=== PATIENT | female | born 1990 | race Caucasian/White ===

== ENCOUNTER → 2018-04-26 13:47 | Outpatient (CLI) | payer BC, SELFPAY ==
[2018-04-26 14:07] LABS: Basophils % 0.6 % (0.1-2.0); Eosinophils # 0.2 K/mm3 (0.0-0.4); Eosinophils % 3.4 % (0.1-12.0); Hematocrit 44.4 % (37.0-47.0); Hemoglobin 14.5 g/dL (12.2-16.2); Lymphocytes # 2.4 K/mm3 (0.7-4.5); Lymphocytes % 34.6 % (10-50); Mean Corpuscular HGB Conc 32.6 g/dL (31.8-35.4); Mean Corpuscular Hemoglobin 29.2 pg (27.0-31.2); Mean Corpuscular Volume 89.6 fl (81-99); Mean Platelet Volume 8.9 fl (7.4-10.4); Monocytes # 0.4 K/mm3 (0.1-1.0); Monocytes % 5.5 % (1.7-9.3); Neutrophils # 3.8 K/mm3 (1.8-7.8); Neutrophils % 55.9 % (37.0-80.0); Platelet Count 300 K/mm3 (142-424); Red Blood Count 4.96 M/mm3 (4.20-5.40); Red Cell Distribution Width 12.6 % (11.5-17.5); White Blood Count 6.8 K/mm3 (4.8-10.8)
[2018-04-26 14:20] LABS: Alanine Aminotransferase 66 U/L (12-78); Albumin Level 3.8 gm/dL (3.4-5.0); Albumin/Globulin Ratio 1.1 (1.1-1.8); Alkaline Phosphatase 81 U/L (46-116); Anion Gap 13.5 mEq/L (5-15); Aspartate Amino Transferase 28 U/L (15-37); Bilirubin,Total 0.5 mg/dL (0.2-1.0); Blood Urea Nitrogen 16 mg/dL (7-18); Carbon Dioxide 26 mmol/L (21.0-32.0); Chloride 104 mmol/L (98-107); Chol/HDL Ratio 3.7 (1-3.5); Cholesterol 187 mg/dL (140-200); Creatinine,Serum 0.63 mg/dL (0.55-1.02); Estimated Glomerular Filt Rate 113 ml/min (>60); GFR (African American) 137 ML/MIN (>60); Globulin 3.5 gm/dl (1.3-3.2); Glucose 94 mg/dL (74-106); HDL Cholesterol 50 mg/dL (29-89); LDL Cholesterol 128 mg/dL (0-130); Potassium 4.5 mmoL/L (3.5-5.1); Sodium 139 mmol/L (136-145); T4 (Thyroxine) 8.3 ug/dl (4.7-13.3); Thyroid Stimulating Hormone 2.22 uIU/ml (0.358-3.740); Total Protein,Serum 7.3 gm/dL (6.4-8.2); Triglycerides 46 mg/dL (30-200); VLDL Cholesterol 9 mg/dL (0-40)
[2018-04-26 14:33] LABS: C-Reactive Protein < 0.2 mg/L (0.0-0.9)
[2018-04-26 15:38] LABS: Erythrocyte Sedimentation Rate 20 mm/hr (0-20)
== END ==
PROVIDERS: Visit Provider Physician Assistant
DX: H53.8 Other visual disturbances (principal); H53.123 Transient visual loss, bilateral; R42 Dizziness and giddiness; R53.83 Other fatigue; F32.9 Major depressive disorder, single episode, unspecified
CPT/HCPCS: 80053; 80061; 82652; 84436; 84443; 85025; 85651; 86140

== ENCOUNTER → 2018-05-11 14:05 | Outpatient (CLI) | payer BC, SELFPAY ==
--- NOTE | 2018-05-11 14:13 | CT_ITS ---
CT head/brain wo con HISTORY: Transient visual loss, optic nerve swelling ITS.REASON: Transient visual loss ORDERING PHYSICIAN: SHILOH Zuñiga PATIENT AGE: 27 years COMPARISON: None TECHNIQUE: Axial images obtained without contrast. Brain and bone windows reviewed. All CT scans at the facility use one or more dose reduction, viz: automated exposure control, ma/kV adjustment per patient size (including targeted exams where dose is matched to indication, i.e. head), or iterative reconstruction technique. FINDINGS: No midline shift, mass effect, intracranial hemorrhage, hydrocephalus, or extra-axial fluid collection is evident. The calvarium has an unremarkable appearance. No mastoid effusion. No sinus air-fluid levels.. There is mild mucosal thickening of the ethmoid sinuses IMPRESSION: Negative CT head without contrast. No acute finding
--- NOTE | 2018-05-11 14:25 | CI_ITS ---
Cerebrovascular Exam Indications: Transient vision loss 368.12. Patient notes she has suffered from migraines for several years and recently had transient vision loss with migraine. IMPRESSIONS 1. The bilateral internal carotid arteries reveal no evidence of plaque or stenosis. 2. The bilateral common and external carotid arteries reveal no significant stenosis. Carotid duplex study. Complete study and Doppler flow study including spectral analysis, color and valdez scale imaging. Height: Height: 165.1cm. Height: 65in. Weight: Weight: 77.1kg. Weight: 169.6lb. Body mass index: BMI: 28.3kg/m^2. Body surface area: BSA: 1.9m^2. Location: Vascular laboratory. Patient status: Outpatient. Tables: Arterial flow: + +--------+--------+ Location V sys V ed + +--------+--------+ Right CCA - proximal 125cm/s 28.3cm/s + +--------+--------+ Right CCA - distal 102cm/s 35.4cm/s + +--------+--------+ Right ECA 108cm/s -------- + +--------+--------+ Right ICA - proximal 93.5cm/s 40.1cm/s + +--------+--------+ Right ICA - mid 106cm/s 47.9cm/s + +--------+--------+ Right ICA - distal 125cm/s 57.4cm/s + +--------+--------+ Right vertebral 73.1cm/s -------- + +--------+--------+ Left CCA - proximal 134cm/s 34.6cm/s + +--------+--------+ Left CCA - distal 109cm/s 36.1cm/s + +--------+--------+ Left ECA 117cm/s -------- + +--------+--------+ Left ICA - proximal 89.6cm/s 34.6cm/s + +--------+--------+ Left ICA - mid 118cm/s 49.5cm/s + +--------+--------+ Left ICA - distal 120cm/s 51.9cm/s + +--------+--------+ Left vertebral 77cm/s -------- + +--------+--------+ Velocity ratios: + + + + + + Right, V sys Right, V ed Left, V sys Left, V ed + + + + + + Max ICA/dist CCA 1.23 1.62 1.1 1.44 + + + + + + (Report amended ) Electronically signed by: Luc Khanna [id number]
== END ==
PROVIDERS: PCP Physician Assistant; Visit Provider Physician Assistant
DX: H53.8 Other visual disturbances (principal)
CPT/HCPCS: 70450; 93880

== ENCOUNTER → 2019-08-14 09:52 | Outpatient (CLI) | payer BC, SELFPAY ==
[2019-08-14 11:32] LABS: HCG,Quantitative 314 mIU/ml (0-5.42)
== END ==
PROVIDERS: Visit Provider Obstetrics & Gynecology
DX: Z34.90 Encounter for supervision of normal pregnancy, unspecified, unspecified trimester (principal)
CPT/HCPCS: 36415; 84702

== ENCOUNTER → 2019-08-16 09:01 | Outpatient (CLI) | payer BC, SELFPAY ==
[2019-08-16 10:13] LABS: HCG,Quantitative 829 mIU/ml (0-5.42)
== END ==
PROVIDERS: Visit Provider Obstetrics & Gynecology
DX: Z32.00 Encounter for pregnancy test, result unknown (principal)
CPT/HCPCS: 36415; 84702

== ENCOUNTER → 2019-08-20 09:21 | Outpatient (CLI) | payer BC, SELFPAY ==
[2019-08-20 11:33] LABS: HCG,Quantitative 4360 mIU/ml (0-5.42)
== END ==
PROVIDERS: Visit Provider Obstetrics & Gynecology
DX: Z34.90 Encounter for supervision of normal pregnancy, unspecified, unspecified trimester (principal)
CPT/HCPCS: 36415; 84702

== ENCOUNTER → 2019-08-21 12:20 | Outpatient (CLI) | payer BC, SELFPAY ==
[2019-08-21 12:56] LABS: Basophils % 0.4 % (0.1-2.0); Eosinophils # 0.6 K/mm3 (0.0-0.4); Eosinophils % 5.6 % (0.1-12.0); Hematocrit 40.7 % (37.0-47.0); Hemoglobin 13.9 g/dL (12.2-16.2); Lymphocytes # 2.4 K/mm3 (0.7-4.5); Lymphocytes % 22.9 % (10-50); Mean Corpuscular HGB Conc 34.3 g/dL (31.8-35.4); Mean Corpuscular Hemoglobin 29.8 pg (27.0-31.2); Mean Platelet Volume 7.8 fl (7.4-10.4); Monocytes # 0.3 K/mm3 (0.1-1.0); Monocytes % 3.2 % (1.7-9.3); Neutrophils # 7.2 K/mm3 (1.8-7.8); Neutrophils % 68.1 % (37.0-80.0); Platelet Count 376 K/mm3 (142-424); Red Blood Count 4.68 M/mm3 (4.20-5.40); Red Cell Distribution Width 12.8 % (11.5-17.5); White Blood Count 10.5 K/mm3 (4.8-10.8)
[2019-08-21 13:53] LABS: Phencyclidine Screen,Urine Negative ng/ml (<25)
[2019-08-21 14:01] LABS: Amphetamine/Metha Screen,Urine Negative ng/ml (<1000)
[2019-08-21 14:02] LABS: Barbiturates Screen,Urine Negative ng/ml (<200)
[2019-08-21 14:03] LABS: Benzodiazepines Screen,Urine Negative ng/ml (<200); Cannabinoid Screen,Urine Negative ng/ml (<50)
[2019-08-21 14:04] LABS: Opiate Screen,Urine Negative ng/ml (<300)
[2019-08-21 14:05] LABS: Cocaine Screen,Urine Negative ng/ml (<300); Methadone Screen,Urine Negative ng/ml (<300)
[2019-08-22 11:57] LABS: HIV Screen 4th Generation wRfx Non Reactive (Non Reactive); Hepatitis B Surface Antigen Negative (Negative); Hepatitis C Antibody 0.1 s/co ratio (0.0-0.9); Rapid Plasma Reagin Ab Titer Non Reactive (NonRea<1:1); Rubella Antibodies, IgG 1.04 index (Immune >0.99)
== END ==
PROVIDERS: Visit Provider Obstetrics & Gynecology
DX: Z34.90 Encounter for supervision of normal pregnancy, unspecified, unspecified trimester (principal)
CPT/HCPCS: 36415; 80305; 85025; 86592; 86703; 86762; 86850; 87340; 87380; G0432

== ENCOUNTER → 2019-08-23 10:09 | Outpatient (CLI) | payer BC, SELFPAY ==
[2019-08-23 11:30] LABS: HCG,Quantitative 9326 mIU/ml (0-5.42)
== END ==
PROVIDERS: Visit Provider Obstetrics & Gynecology
DX: Z34.90 Encounter for supervision of normal pregnancy, unspecified, unspecified trimester (principal)
CPT/HCPCS: 36415; 84702

== ENCOUNTER → 2019-08-27 13:20 | Outpatient (CLI) | payer BC, SELFPAY ==
--- NOTE | 2019-08-27 13:23 | US_ITS ---
PROCEDURE: US OB TRANSVAGINAL CLINICAL INDICATION: US OB Dates COMPARISON: TVP US TRANSVAGINAL PREG from 12/19/2014 FINDINGS: An intrauterine gestational sac is present with a pole with a crown-rump length of 0.3cm correlating to gestational age of 6weeks. heart tones are present with an FHR of 106bpm. Yolk sac is noted. No adnexal mass. No cul-de-sac fluid IMPRESSION: Live IUP at 6 weeks 0 days Estimated due date by Ultrasound is 04/21/2020 Dictated by: Sohial Aragon MD 08/27/2019 18:45 Electronically signed by Sohail Aragon MD in [place] 08/27/2019 18:45
== END ==
PROVIDERS: PCP Physician Assistant; Visit Provider Obstetrics & Gynecology
DX: O26.841 Uterine size-date discrepancy, first trimester (principal)
CPT/HCPCS: 76817

== ENCOUNTER → 2019-09-04 14:34 | Outpatient (CLI) | payer BC, SELFPAY ==
--- NOTE | 2019-09-04 14:35 | US_ITS ---
PROCEDURE: US OB <= 14 WEEKS FETUS CLINICAL INDICATION: heart rate slow and mother had an ablation Evaluate viability/early age COMPARISON: US OB TRANSVAGINAL from 08/27/2019 FINDINGS: An intrauterine gestational sac is present with a pole with a crown-rump length of 0.97cm correlating to gestational age of 7weeks 1day. heart tones are present with an FHR of 136bpm. Yolk sac is noted. Unremarkable adnexa IMPRESSION: Live IUP at 7 weeks 1 day Estimated due date by Ultrasound is 04/21/2020 Dictated by: Sohail Aragon MD 09/04/2019 16:55 Electronically signed by Sohail Aragon MD in [facility] 09/04/2019 16:55
== END ==
PROVIDERS: PCP Physician Assistant; Visit Provider Obstetrics & Gynecology
DX: R00.1 Bradycardia, unspecified (principal); Z98.890 Other specified postprocedural states
CPT/HCPCS: 76801

== ENCOUNTER 2020-01-16 18:33 | Outpatient (CLI) | payer BC, SELFPAY ==
[2020-01-16 19:07] VITALS: BP 129/89; PULSE 111; RESP 20; TEMP 36.9; O2SAT 97; BMI 30.7
[2020-01-16 19:42] VITALS: BMI 30.7
[2020-01-16 20:14] LABS: Microscopic, Urine URINE MICROSCOPIC (MICROSCOPIC)
[2020-01-16 20:22] LABS: Appearance,Urine CLEAR (Clear); Bilirubin,Urine Negative (Negative); Blood, Urine Negative (Negative); Color,Urine YELLOW (Yellow); Glucose,Urine (UA) Negative (Negative); Ketones,Urine Negative (Negative); Leukocyte Esterase,Urine TRACE (Negative); Nitrate,Urine Negative (Negative); Protein,Urine Negative (Negative); Urobilinogen,Urine 0.2 EU/dl (0.2)
[2020-01-16 20:29] LABS: Mucus,Urine 2+ /lpf
[2020-01-16 20:34] LABS: Amphetamine/Metha Screen,Urine Negative ng/ml (<1000)
[2020-01-16 20:35] LABS: Barbiturates Screen,Urine Negative ng/ml (<200); Benzodiazepines Screen,Urine Negative ng/ml (<200)
[2020-01-16 20:36] LABS: Cannabinoid Screen,Urine Negative ng/ml (<50)
[2020-01-16 20:37] LABS: Cocaine Screen,Urine Negative ng/ml (<300); Methadone Screen,Urine Negative ng/ml (<300)
[2020-01-16 20:38] LABS: Opiate Screen,Urine Negative ng/ml (<300); Phencyclidine Screen,Urine Negative ng/ml (<25)
== END 2020-01-16 21:44 | disposition home or self-care (01) ==
LOC: OBOUT 18:36 → OB 18:37
PROVIDERS: PCP Physician Assistant; Visit Provider Nurse Practitioner Obstetrics & Gynecology
DX: O47.02 False labor before 37 completed weeks of gestation, second trimester (principal); Z3A.26 26 weeks gestation of pregnancy
CPT/HCPCS: 59025; 80305; 81001; 96365; 96372; G0463

== ENCOUNTER 2020-02-22 02:49 | Outpatient (CLI) | payer BC, SELFPAY ==
[2020-02-22 03:00] VITALS: BMI 31.4
[2020-02-22 03:27] VITALS: BP 141/98; PULSE 111; RESP 22; TEMP 36.7; O2SAT 98; BMI 31.4
[2020-02-22 03:30] LABS: Fetal Membrane Rupture (Rapid) Positive (Negative)
[2020-02-22 03:32] LABS: Chloride 104 mmol/L (98-107); Potassium 3.8 mmoL/L (3.5-5.1); Sodium 134 mmol/L (136-145)
[2020-02-22 03:35] LABS: Anion Gap 11.8 mEq/L (5-15); Blood Urea Nitrogen 10 mg/dl (7-17); Calcium 9.9 mg/dl (8.4-10.2); Carbon Dioxide 22 mmol/L (22.0-30.0); Creatinine Clearance Estimated 225 mL/min (50-200); Estimated Glomerular Filt Rate 146 ml/min (>60); GFR (African American) 177 ML/MIN (>60); Glucose 121 mg/dl (74-100)
[2020-02-22 03:39] LABS: Basophils % 0.1 % (0.1-2.0); Eosinophils # 0.2 K/mm3 (0.0-0.4); Eosinophils % 1.2 % (0.1-12.0); Hematocrit 39.3 % (37.0-47.0); Mean Corpuscular HGB Conc 33.1 g/dL (31.8-35.4); Mean Corpuscular Volume 84.5 fl (81-99); Mean Platelet Volume 10.3 fl (7.4-10.4); Monocytes # 0.9 K/mm3 (0.1-1.0); Monocytes % 5.1 % (1.7-9.3); Neutrophils # 13.3 K/mm3 (1.8-7.8); Neutrophils % 76.6 % (37.0-80.0); Platelet Count 271 K/mm3 (142-424); Red Blood Count 4.65 M/mm3 (4.20-5.40); Red Cell Distribution Width 13.5 % (11.5-17.5); White Blood Count 17.3 K/mm3 (4.8-10.8)
[2020-02-22 03:42] LABS: MANUAL DIFFERENTIAL MANUAL DIFFERENTIAL (MANUAL DIFF)
--- NOTE | 2020-02-22 03:47 | HMH.OBDCSM ---
General - General Admission date:: 02/22/20 Discharge date: 02/22/20 HPI - History of Present Illness History of present illness: 29 yo [id number] @ 31 05/21 presented with gush of amniotic fluid Grossly ruptured on exam, cervix visually closed complicated by a history an endometrial ablation in 2018 Patient continued to have regular menstrual periods after the ablation but was under the impression that the ablation constituted a form of contraception consult with M Dr. Suh (including all ultrasound exams) has not shown any abnormal placentation and course has been fairly uneventful She was seen in OB triage for contractions at 26 weeks and received a single dose of celestone, but cervix was closed labsdrawn 08/21/19: A+, antibody negative, Hep B sAg negative, Hep C negative, HIV neg, rubella immune Hospital Course Hospital Course: Evaluation in triage showed gross rupture of membranes and transfer to was immediately arranged due to prematurity NST shows basline 150 with normal variability and no decelerations; no contractions on [place] Objective Vital signs: Temp Pulse Resp BP Pulse Ox 98.1 F 111 H 22 141/98 H 98 02/22/20 03:27 02/22/20 03:27 02/22/20 03:27 02/22/20 03:27 02/22/20 03:27 no acute distress - *Routine HEENT Exam Head: Present: normocephalic, atraumatic Eye: Absent: conjunctival icterus ENT: Present: mucous membranes moist - *Routine Neck Exam Present: supple - *Routine Respiratory Exam Present: CTA bilaterally. Absent: respiratory distress - *Routine Cardiovascular Exam Present: RRR - *Routine Abdominal Exam Present: soft. Absent: tenderness, distended - *Routine Exam Comments: pooling of amniotic fluid cervix visually closed - *Routine Extremities Exam Absent: edema - *Routine Skin Exam Absent: rash - *Routine Neurological Exam Present: alert, oriented X3 - Routine Psychiatric Exam Present: normal affect Results Labs on day of discharge: Labs from last 24 hours 02/22/20 02/22/20 02/22/20 03:15 03:15 03:15 WBC 17.3 H RBC 4.65 Hgb 13.0 Hct 39.3 MCV 84.5 MCH 28.0 MCHC 33.1 RDW 13.5 Plt Count 271 MPV 10.3 Neut % (Auto) 76.6 Lymph % (Auto) 17.0 [place] % (Auto) 5.1 Eos % (Auto) 1.2 Baso % (Auto) 0.1 Neut # (Auto) 13.3 H Lymph # (Auto) 3.0 [place] # (Auto) 0.9 Eos # (Auto) 0.2 Baso # (Auto) 0.0 Sodium 134 L Potassium 3.8 Chloride 104 Carbon Dioxide 22 Anion Gap 11.8 BUN 10 Creatinine 0.50 L Estimated Creat Clear 225 Estimated GFR 146 Est GFR ( Amer) 177 Glucose 121 H Calcium 9.9 Membrane Rupture Blood Type Pending Antibody Screen Pending 02/22/20 03:00 WBC RBC Hgb Hct MCV MCH MCHC RDW Plt Count MPV Neut % (Auto) Lymph % (Auto) [place] % (Auto) Eos % (Auto) Baso % (Auto) Neut # (Auto) Lymph # (Auto) [place] # (Auto) Eos # (Auto) Baso # (Auto) Sodium Potassium Chloride Carbon Dioxide Anion Gap BUN Creatinine Estimated Creat Clear Estimated GFR Est GFR ( Amer) Glucose Calcium Membrane Rupture Positive A Blood Type Antibody Screen DS: Diagnosis - Discharge Diagnosis (1) 31 weeks gestation of Status: Acute (2) Premature rupture of membranes Status: Acute (3) History of endometrial ablation Status: Acute Problem details: 08/2018 (4) Anxiety and depression Status: Acute (5) tubal ligation planned Status: Acute Discharge Plan - Patient Discharge Instructions ACTIVITY: Bed rest DIET: continue same diet - Follow up Plan Disposition: Xfer Short-Term Hosp Home Medications: Home Medications Medication Instructions Recorded Confirmed Type prenat.vits,ivan,wem-wome-rcrjv 1 tab PO DAILY 08/30/19 History venlafaxine 150 mg See
[2020-02-22 03:56] LABS: Coronavirus 19 IgG Antibody Negative (Negative); Coronavirus 19 IgM Antibody Negative (Negative)
[2020-02-22 05:34] LABS: Eosinophils % 3 % (0-3); Lymphocytes % 17 % (10-50); Neutrophils % 80 % (42-76); Platelet Estimate Normal; RBC Morphology Normal; Total Cells Counted 100
== END 2020-02-22 04:14 | disposition short-term general hospital (02) ==
LOC: OBOUT 02:50 → OB 02:56
PROVIDERS: PCP Physician Assistant; Visit Provider Obstetrics & Gynecology
DX: O26.893 Other specified pregnancy related conditions, third trimester (principal); Z3A.31 31 weeks gestation of pregnancy
CPT/HCPCS: 59025; 80048; 84112; 85007; 85025; 86328; 86850; 96360; J0290

== ENCOUNTER → 2020-05-21 12:53 | Outpatient (CLI) | payer BC, SELFPAY ==
--- NOTE | 2020-05-21 12:54 | MR_ITS ---
PROCEDURE: MR HEAD/BRAIN WO CON CLINICAL INDICATION: Benign increased intracranial pressure, headache COMPARISON: CT HEADWO CT head/brain wo con from 05/11/2018 TECHNIQUE: Routine multiplanar multi echo sequences are performed without gadolinium enhancement. FINDINGS: No midline shift, mass effect, intracranial hemorrhage, or hydrocephalus is. The cerebellopontine angles, cerebellum, and brainstem have an unremarkable appearance. The pituitary, optic chiasm, corpus callosum, and craniocervical junction have an unremarkable appearance. There is a partial empty sella. The ventricles are somewhat slit like. No restricted diffusion. Small amount fluid is present in the left mastoid sinus. Mucosal thickening is present in the ethmoid sinus bilaterally, right anterior ethmoids, and right frontal sinus with small air-fluid levels in the frontal sinus on the right.. IMPRESSION: 1. The lateral ventricles are somewhat small with a slit like appearance and there is partial empty sella. These findings may be seen with benign intracranial hypertension. Correlation with clinical parameters needed. 2. Ethmoid and right frontal sinus disease with a small amount of fluid in the left mastoid sinus. Dictated by: Sohail Aragon MD 05/21/2020 14:36 Sohail Aragon MD in [place] 05/21/2020 14:37
== END ==
PROVIDERS: PCP Physician Assistant; Visit Provider Specialist
DX: G44.89 Other headache syndrome (principal); G93.2 Benign intracranial hypertension
CPT/HCPCS: 70551

== ENCOUNTER 2020-05-23 10:01 | Day surgery (SDC) | payer BC, SELFPAY ==
[2020-05-23 10:13] VITALS: BP 118/81; PULSE 96; RESP 18; TEMP 36.6; O2SAT 97; BMI 30.2
[2020-05-23 10:40] VITALS: BP 107/69; PULSE 72; RESP 18
[2020-05-23 10:45] VITALS: BP 108/71; PULSE 75; RESP 18; O2SAT 98
--- NOTE | 2020-05-23 10:54 | HMH.PMPROC ---
- Procedure Date: 05/23/20 Time: 10:54 Anesthesiologist:: Heriberto Naylor MD Complications:: None Pre-procedure Diagnosis:: Headaches with pseudotumor cerebri Post-procedure Diagnosis:: Same Indications for Procedure:: Patient is a pleasant 29-year-old white female who we are treating for headaches with pseudotumor cerebri. She is referred by Dr. Duff for diagnostic lumbar puncture under fluoroscopy to obtain opening and closing pressures and CSF to send for indicated studies. Procedure Details:: Lumbar puncture under fluoroscopy Informed consent was obtained the risk and benefits of the procedure were explained to the patient. Patient was taken the procedure room. She was placed in left lateral decubitus position. C-arm fluoroscopy was used to view the lumbar spine. The skin and subcutaneous tissues were anesthetized using lidocaine. A 20-gauge needle was inserted and advanced into the L4-5 interspace until clear CSF was obtained. Opening pressures were taken and found to be 19 cm of water. We withdrew approximately 20 mL of CSF placed into a total of 4 tubes. Closing pressures were found to be 8 cm of water. The needle was withdrawn a Band-Aid was placed the patient was taken recovery in stable condition. Patient tolerated the procedure well with no complications. Plan and Disposition:: We will follow-up with her on a as needed basis. We will send these results over to Dr. Duff if she develops a spinal headache she is to call us back in the pain clinic. We did give the patient conservative treatment recommendations to prevent a post dural puncture headache.
[2020-05-23 11:15] VITALS: BP 129/82; PULSE 75; RESP 20; O2SAT 97
[2020-05-23 11:51] LABS: Glucose,CSF 56 mg/dl (40-70)
[2020-05-23 12:03] LABS: Appearance,CSF Clear (Clear); Mononuclear WBCs,CSF 1 %; Polynuclear WBCs,CSF 0 %; Red Blood Cell,CSF 0 cells/uL (0); Volume,CSF 3 mL; White Blood Cell,CSF 1 cells/uL (0-5)
[2020-05-23 12:09] LABS: Appearance,CSF Clear (Clear); Volume,CSF 3 mL; White Blood Cell,CSF 1 cells/uL (0-5)
[2020-05-23 12:10] LABS: Mononuclear WBCs,CSF 1 %; Polynuclear WBCs,CSF 0 %; Red Blood Cell,CSF 0 cells/uL (0)
[2020-05-27 03:42] LABS: VDRL, Cerebrospinal Fluid Non Reactive (Non Rea:<1:1)
== END 2020-05-23 11:15 | disposition home or self-care (01) ==
LOC: SC.PAINP 10:02
PROVIDERS: Specialist; PCP Physician Assistant; Visit Provider Anesthesiology
DX: G93.2 Benign intracranial hypertension (principal); F32.9 Major depressive disorder, single episode, unspecified; F41.9 Anxiety disorder, unspecified; G43.909 Migraine, unspecified, not intractable, without status migrainosus; Z79.899 Other long term (current) drug therapy
CPT/HCPCS: 62329; 82945; 84155; 86592; 87116; 87186; 87205; 87206; 89051

== ENCOUNTER → 2021-01-23 17:41 | Outpatient (CLI) | payer BC, SELFPAY ==
[2021-01-23 19:06] LABS: T4 (Thyroxine) 10.8 ug/dl (5.53-11.0)
[2021-01-23 19:20] LABS: Thyroid Stimulating Hormone 1.51 uIU/mL (0.465-4.68)
== END ==
PROVIDERS: Visit Provider Nurse Practitioner Family
DX: F32.A Depression, unspecified (principal); F41.9 Anxiety disorder, unspecified
CPT/HCPCS: 84436; 84443

== ENCOUNTER 2021-07-21 19:08 | Emergency (ER) | payer BC, SELFPAY ==
[2021-07-21 20:15] VITALS: BP 138/81; PULSE 91; RESP 22; TEMP 36.9; O2SAT 98; BMI 30.3
[2021-07-21 20:40] VITALS: BP 138/81; PULSE 91; RESP 22; TEMP 36.9; O2SAT 98
--- NOTE | 2021-07-21 20:47 | HMH.EDUTC ---
[facility] Disposition Clinical Impression: Poison rita dermatitis Disposition: Home, Self-Care Condition on Discharge: Good Instructions: Summertime Rashes: Poison Rita, [place], and [place], Poison Rita, Poison [place], Poison [place], DI for Poison Rita Allergy Additional Instructions: Over the counter Calamine lotion may help with itching and drying of rash Oatmeal bathes may help with soothing of skin and drying of rash Rash may continue to spread over the next few days to weeks but then should dry up Start oral steriods tomorrow Return if needed Benadryl may help with itching Follow up with your Family Doctor if no improvement Prescriptions: predniSONE [Prednisone 10mg Tab Dose-Pack] 10 mg PO UD DOSE PK 6 Days #21 tab Transmission Status: Received by [facility] #[id number] Referrals: Brittany Bill PA [Primary Care Provider] - Medical Decision Making - Josiah Inquiry Pt receiving controlled substance: No Josiah was queried for this patient: No Vital Signs: 07/21/21 20:15 07/21/21 20:40 Temperature 98.5 F 98.5 F Temperature Source Oral Pulse Rate 91 H Pulse Rate [Right Brachial] 91 H Respiratory Rate 22 22 Blood Pressure 138/81 Blood Pressure [Right Arm] 138/81 Blood Pressure Mean [Right Arm] 100 Blood Pressure Source [Right Arm] Automatic Cuff Blood Pressure Position [Right Arm] Sitting 02 Sat by Pulse Oximetry 98 Oxygen Delivery Method Room Air Orders (Tests/Meds): ED MEDICATIONS Discontinued Medications Generic Name Dose Route Start Last Admin Trade Name Orlandoq PRN Reason Stop Dose Admin Methylprednisolone Sodium Succinate 125 mg 07/21/21 20:50 07/21/21 20:55 Methylprednisolone Sod Succ 125mg Vial IM 07/21/21 20:51 125 mg ONCE ONE Administration Medical Decision Narrative: Patient reports tubligation [facility] HPI - General Stated complaint: rash all over body Time Seen by Provider: 07/21/21 20:47 Mode of Arrival: Ambulatory Source of Information: Patient Limitations: No Limitations Description of Symptoms (Recalled from Triage Doc. by RN): PATIENT C/O POISON RITA ALL OVER SINCE LAST NIGHT HEENT Symptoms (Recalled from RN notes): No Resp Symptoms (Recalled from RN notes): No Skin Symptoms (Recalled from RN notes): Yes MS Symptoms (Recalled from RN notes): No Functional Status (Recalled from RN notes): WNL - History of Present Illness Provider Complaint: Patient states that she started breaking out in rash all over her arms, legs, and face State thats that she was in poison rita a few days ago and now she is breaking out in rash that started last night and has continued to spread and get worse so tonight she came in to get checked and get something because it is close to her l eye - Related Data Home Medications Medication Instructions Recorded Confirmed Venlafaxine HCl [Effexor XR 150mg] 150 mg PO DAILY 05/23/20 07/21/21 Previous Rx's Medication Instructions Recorded predniSONE [Prednisone 10mg Tab 10 mg PO UD DOSE PK 6 Days #21 tab 07/21/21 Dose-Pack] Allergies Allergy/AdvReac Type Severity Reaction Status Date / Time No Known Allergies Allergy Verified 01/23/21 12:57 - Worker's Comp Is this a Worker's Comp case?: No [facility] History - Hepatitis A Screen Attestation statement:: This patient has been screened for Hepatitis A risk factors. I have reviewed the patient's past medical history: Yes Medical History: Reports:: Anxiety, Depression, Migraine Denies:: Cancer, Diabetes Mellitus Type 1, Diabetes Mellitus Type 2, MRSA, Seizures Other Medical History: Denies: Blood Transfusion Reaction Comment: C/S, 02/25/20 Other Surgeries: Yes: No Previous Surgery, , Other Amputation: No Fractures: No Comment: Uterine ablation - Social History Smoking Status: Never smoker Alcohol Intake: never Substance Use Type: denies use Occupational Status: employed Housing: house Household Members: spouse - Psychiatric History Ps
== END 2021-07-21 21:05 | disposition home or self-care (01) ==
PROVIDERS: Emergency Provider Nurse Practitioner; PCP Physician Assistant
DX: L23.7 Allergic contact dermatitis due to plants, except food (principal)
CPT/HCPCS: 96372; 99212; G0463

== ENCOUNTER → 2022-11-29 15:30 | Outpatient (CLI) | payer BC, SELFPAY ==
[2022-11-29 16:15] LABS: Basophils # 0.1 K/mm3 (0-0.2); Basophils % 0.9 % (0.1-2.0); Eosinophils # 0.4 K/mm3 (0.0-0.4); Eosinophils % 4.6 % (0.1-12.0); Hematocrit 43.2 % (37.0-47.0); Hemoglobin 14.5 g/dL (12.2-16.2); Lymphocytes # 2.7 K/mm3 (0.7-4.5); Lymphocytes % 31.4 % (10-50); Mean Corpuscular HGB Conc 33.5 g/dL (31.8-35.4); Mean Corpuscular Hemoglobin 29.9 pg (27.0-31.2); Mean Corpuscular Volume 89.3 fl (81-99); Monocytes # 0.4 K/mm3 (0.1-1.0); Monocytes % 4.9 % (1.7-9.3); Neutrophils % 58.2 % (37.0-80.0); Platelet Count 371 K/mm3 (142-424); Red Blood Count 4.84 M/mm3 (4.20-5.40); White Blood Count 8.6 K/mm3 (4.8-10.8)
[2022-11-29 17:14] LABS: Chloride 103 mmol/L (98-107); Potassium 4.4 mmoL/L (3.5-5.1); Sodium 139 mmol/L (136-145)
[2022-11-29 17:17] LABS: Anion Gap 11.4 mEq/L (5-15); Blood Urea Nitrogen 14 mg/dl (7-17); Carbon Dioxide 29 mmol/L (22.0-30.0); Estimated Glomerular Filt Rate 97 ml/min (>60); GFR (African American) 117 ML/MIN (>60)
[2022-11-29 17:18] LABS: Calcium 9.4 mg/dl (8.4-10.2); Glucose 97 mg/dl (74-100)
== END ==
LOC: LAB 15:31
PROVIDERS: PCP Physician Assistant; Visit Provider Student in an Organized Health Care Education/Training Program
DX: Z01.818 Encounter for other preprocedural examination (principal)
CPT/HCPCS: 36415; 80048; 85025

== ENCOUNTER 2024-08-24 22:04 | Emergency (ER) | payer BC, SELFPAY ==
--- OUTSIDE RECORDS SUMMARY | 2024-08-06 08:15 | XMS_ITS ---
Author Organization [facility] [place] Address [address] [place] [address] Care Team Providers Care Electronic Typesetting Machine Operator Name Role Phone NO PCP Primary Care Provider Geneva Macedo Unavailable [phone] REASON FOR VISIT TB Risk Assessment Encounters Encounter Location Date Provider Diagnosis [id number] [facility] [address] [place] [address] 08/06/2024 Geneva James Tuberculosis screeni ng Z11.1 Assessments Encounter Date Diagnosis (ICD Code) Assessment Notes Treatment Notes Treatment Clinical Notes Section Notes 08/06/2024 Tuberculosis screening (ICD-10 - Z11.1) Plan Of Treatment Next Appt Details Follow Up: , Reason: Progress Notes * Mario JONESB: 9[birth year] (34 yo F)Acc No.[id number]:08/06/2024 Progress Notes Patient: Peg LARSON Provider: Ar James APRN :1990 A ge:34 Y S ex:Female Date:08/06/2024 External Visit ID:[id number] Address:[address] [id number] Pcp:NO PCP Subjective: * Chief Complaints: * 1 . TB Risk Assessment. * HPI: C onstitutional: Patient presents for TB Risk Assessment. See scanned TB Risk Assessment form in patient documents. * Medical History: Objective: * Vitals: Assessment: * Assessment: 1. T uberculosis screening - Z11.1 (Primary) Plan: * Treatment: * Procedure Codes: T BRSK TB Risk Assessment * Follow Up: _ ____ * Billing Information: * Visit Code: * Procedure Codes: TBRSK TB Risk Assessment. Care Plan Details* * Sign off status: Completed true * Provider: Ar James APRN Date: 08/06/2024 Generated for Aaron reid/Peewee/Pina on: 08/24/2024 09:13 PM CDT
[2024-08-24 22:12] VITALS: BP 153/106; PULSE 131; RESP 22; TEMP 36.8; O2SAT 98; BMI 28.3
--- NOTE | 2024-08-24 22:13 | ED_ITS ---
Discharge Plan Disposition Patient Disposition: Home, Self-Care Prescriptions Prescriptions: New methocarbamol 750 mg tablet 750 mg PO Q8H PRN (Reason: muscle spasm) Qty: 30 0RF No Action tretinoin 0.025 % cream 1 applic topical HS Qty: 45 0RF (DME) pen needle, diabetic [BD Estefany 2nd Gen Pen Needle] 32 gauge x 5/32 needle See Rx Instructions .ROUTE .COMPLEX Qty: 100 0RF Dose Instruction: USE DAILY DIRECTED Rx Instructions: USE DAILY DIRECTED ciprofloxacin HCl [Cipro] 500 mg tablet 500 mg PO BID 5 Days Qty: 10 0RF Saxenda 3 mg/0.5 mL (18 mg/3 mL) pen injector See Rx Instructions .ROUTE .COMPLEX Qty: 15 0RF Dose Instruction: INJECT SUBCUTANEOUSLY ONCE DAILY. FOR WEEK 1 ADMINISTER 0.6MG, WEEK 2= 1.2MG, WEEK 3= 1.8MG, WEEK 4-= 2.4MG. THEN 3MG DAILY Rx Instructions: INJECT SUBCUTANEOUSLY ONCE DAILY. FOR WEEK 1 ADMINISTER 0.6MG, WEEK 2= 1.2MG, WEEK 3= 1.8MG, WEEK 4-= 2.4MG. THEN 3MG DAILY levofloxacin 500 mg tablet 500 mg PO Q24H 7 Days Qty: 7 0RF phenazopyridine [Pyridium] 200 mg tablet 200 mg PO TID PRN (Reason: pain) Qty: 6 0RF ondansetron 8 mg tablet,disintegrating 8 mg PO Q8H PRN (Reason: nausea and vomiting) Qty: 30 0RF levofloxacin 500 mg tablet 500 mg PO Q24H 5 Days Qty: 5 0RF phenazopyridine [Pyridium] 200 mg tablet 200 mg PO TID PRN (Reason: pain) Qty: 6 0RF venlafaxine 150 mg capsule,extended release 24hr See Rx Instructions .ROUTE .COMPLEX Qty: 90 0RF Dose Instruction: TAKE 1 CAPSULE BY MOUTH EVERY DAY Rx Instructions: TAKE 1 CAPSULE BY MOUTH EVERY DAY Referrals Follow up/Referrals: Brittany Bill PA [Primary Care Provider, Medical] - See instructions Activity Restrictions/Add. Instructions Additional Instructions/Restrictions: Follow-up with your primary care physician if symptoms do not improve. You can take Tylenol, ibuprofen and lidocaine patches to help with your symptoms. You are also being prescribed Robaxin, a muscle relaxer to help with your symptoms. If you develop any new or worsening symptoms, or if you become concerned for your health for any reason, return to the emergency department for evaluation. Clinical Impressions Clinical Impression: Neck pain on right side, Anxiety Print Language Print Language: Uzbek Discharge ED Provider: Nagi Zavlaeta General Adult HPI General Chief complaint: Headache Stated complaint: Anxiety,nausea,[place] Time Seen by Provider: 08/24/24 22:07 Mode of Arrival: Ambulatory Source of Information: Patient Limitations: No Limitations History of Present Illness HPI narrative: Peg Lea is a 34y female with a past medical history of anxiety who presents to the emergency department for complaints of pain in her neck going up to her head, increased anxiety, chest palpitations/heaviness. Patient states that on Tuesday, she was diagnosed with a UTI and started taking antibiotics on Tuesday. By Tuesday, her abdominal pain, foul-smelling urine and back pain had resolved. Starting yesterday, she started develop pain to the back of her neck that radiates up into the back of her head. She states that she is also felt increasingly anxious and has a heaviness in her chest. She does note that she takes Effexor for anxiety. She took Tylenol and ibuprofen with some relief of symptoms. She denies any cough, fever. Related Data Previous Rx's ?Medication ?Instructions ?Recorded tretinoin 0.025 % topical cream 1 applic topical HS #4 5 grams 11/19/21 pen needle, diabetic 32 gauge x #100 ea 03/02/22 (BD Estefany 2nd Gen Pen Needle) ciprofloxacin HCl 500 mg tablet 500 mg PO BID 5 days # 10 tabs 06/22/22 (Cipro) liraglutide (weight loss) 3 mg/0.5 See Rx Instructions .Route 08/26/22 mL (18 mg/3 mL) subcut pen .COMPLEX #15 mL injector (Saxenda) levofloxacin 500 mg tablet 500 mg PO Q24H 7 days #7 ta bs 11/15/22 ondansetron 8 mg disintegrating 8 mg PO Q8H PRN nausea and 11/15/22 tablet vomiting #30 tabs phenazopyridine 200 mg tablet 200 mg PO TID PRN pain 6 doses #6 11/15/22 (Pyridium) tabs levofloxacin 500 mg tablet 500 mg PO Q24H 5 days #5 ta bs 04/19/23 phenazopyridine 200 mg tablet 200 mg PO TID PRN pain 6 doses #6 04/19/23 (Pyridium) tabs venlafaxine 150 mg See Rx Instructions .Route 0 06/28/23 capsule,extended release 24 hr .COMPLEX #90 caps methocarbamol 750 mg tablet 750 mg PO Q8H PRN muscle s pasm #30 08/24/24 tabs Allergies Allergy/AdvReac Type Severity Reaction Status Date / Time No Known Allergies Allergy Verified 11/18/21 11:29 [facility] Disclaimer: The information contained in this section may have been updated after the patient was seen, as this information can be updated by other users. Medical History (Updated 08/24/24 @ 23:11 by Nagi Zavaleta MD) Constipation Obesity (BMI 30.0-34.9) Anxiety and depression Surgical History (Updated 10/27/21 @ 12:48 by SHILOH Valentine) History of endometrial ablation Social History Smoking Status: Never smoker alcohol intake: never substance use type: denies use current occupational status: employed Travel in the last 8 weeks?: None household members: spouse housing: house current occupational exposures/hazards: No caffeine: Yes Have you lived/traveled outside US in past 30 days?: No Contact w/someone who lives/traveled outside US past 30 days?: No Exposure to someone with infectious disease in past 14 days?: No Do you have a fever (greater than 100.4 F or 38 C)?: No Have you tested positive for COVID-19?: No Exposed to someone with COVID-19 in past 14 days?: No Do you have a sore throat?: No Do you have a cough?: No Do you have any weakness?: No Do you have any diarrhea?: No Are you experiencing any unusual bleeding?: No Do you have any muscle aches/pain?: No Do you have any abdominal pain?: No Are you experiencing loss of taste or smell?: No Other Medical History Have you received the Flu Vaccine for this season: No Have you received the Pneumonia Vaccine: No ROS Obtained: Yes Systems reviewed as appropriate & no additional complaints except as documented Physical Exam General General appearance: alert, in no apparent distress and anxious Head Head exam: atraumatic Eye Eye exam: Present normal appearance ENT ENT exam: Present normal external ear exam Neck Neck exam: Present full ROM; Absent trachea midline, tenderness or meningismus Chest Chest inspection: Present symmetric chest wall rise Respiratory Respiratory exam: Present normal lung sounds bilaterally; Absent respiratory distress, wheezes or stridor Cardiovascular Cardiovascular exam: Present normal rhythm and tachycardia Abdominal Exam Abdominal exam: Present soft; Absent tenderness or guarding Extremities Exam Extremities exam: Present normal inspection Back Exam Back exam: Present normal inspection Neurological Exam Neurological exam: Present alert and oriented X3 Psychiatric Psychiatric exam: Present normal affect Skin Skin exam: Present warm and dry Medical Decision Making Medical Records Screening: Per USPSTF and CDC recommendations, given the prevalence of disease in our region, it is our hospital?s policy to screen for HIV and viral Hepatitis for all patients aged 18 and over and those with ongoing risk factors. Josiah Inquiry Pt receiving controlled substance: No Vital Signs: 08/24/24 22:12 Temperature 98.2 F Temperature Source Oral Pulse Rate [Left] 131 H Respiratory Rate 22 Blood Pressure [Right Arm] 153/106 H Blood Pressure Mean [Right Arm] 121 Blood Pressure Source [Right Arm] Automatic Cuff Blood Pressure Position [Right Arm] Sitting 02 Sat by Pulse Oximetry 98 Oxygen Delivery Method Room Air Lab Data Lab Results 08/24/24 22:14: WBC 10.4, RBC 5.20, Hgb 14.8, Hct 45.3, MCV 87.1, MCH 28.5, MCHC 32.7, RDW 12.1, Plt Count 411, MPV 10.3, Neut % (Auto) 54.3, Lymph % (Auto) 35.6, [place] % (Auto) 4.7, Eos % (Auto) 4.7, Baso % (Auto) 0.6, Neut # (Auto) 5.6, Lymph # (Auto) 3.7, [place] # (Auto) 0.5, Eos # (Auto) 0.5 H, Baso # (Auto) 0.1, D- Dimer 0.51 H, Troponin I < 0.01, TSH 3.76, Serum HCG, Qual Negative 08/24/24 22:14 Orders (Tests/Meds): ED MEDICATIONS Discontinued Medications Generic Name Dose Route Start Last Admin Trade Name Freq PRN Reason Stop Dose Admin Diphenhydramine HCl 25 mg 08/24/24 22:11 07/11/25 22:28 Diphenhydramine 50mg/Ml Vial IV 08/24/24 22:12 25 mg ONCE ONE Administration Droperidol 2.5 mg 08/24/24 22:11 08/24/24 22:28 Droperidol 5mg/2ml Vial IV 08/24/24 22:12 2.5 mg ONCE ONE Administration Lactated Ringer's 500 mls @ 999 mls/hr 08/24/24 22:12 08/24/24 22:29 Lactated Ringer's 500ml IV 08/24/24 22:42 999 mls/hr .Q31M ONE Administration Ketorolac Tromethamine 15 mg 08/24/24 22:11 08/24/24 22:29 Ketorolac 30mg/Ml Vial IV 08/24/24 22:12 15 mg ONCE ONE Administration ORDERS Category Date Time Status CXR --portable [XR chest portable] Stat Exams 08/24/24 22:13 Taken CBC w/Auto Diff [Complete Blood Count Auto Diff] Stat Lab 08/24/24 22:14 Completed D-Dimer Stat Lab 08/24/24 22:14 Completed Serum [HCG Qualitative, Serum] Stat Lab 08/24/24 22:14 Completed TSH [Thyroid Stimulating Hormone] Stat Lab 08/24/24 22:14 Completed Troponin I Q3H Lab 08/25/24 01:15 Ordered Troponin I Q3H Lab 08/25/24 04:15 Ordered Troponin I Stat Lab 08/24/24 22:14 Completed Medical Decision Narrative: Peg Lea is a 34y female with a past medical history of anxiety who presents to the emergency department for complaints of pain in her right neck going up to her head, increased anxiety, chest palpitations/heaviness. Patient states that on Tuesday, she was diagnosed with a UTI and started taking antibiotics on Tuesday. By Tuesday, her abdominal pain, foul-smelling urine and back pain had resolved. Starting yesterday, she started develop pain to the back of her neck that radiates up into the back of her head. She states that she is also felt increasingly anxious and has a heaviness in her chest. She does note that she takes Effexor for anxiety. She took Tylenol and ibuprofen with some relief of symptoms. She denies any cough, fever, shortness of breath. On arrival, patient is normotensive, tachycardic, afebrile, breathing comfortably on room air, maintaining appropriate oxygen saturation. Physical exam, stated above, reveals an anxious appearing female in no acute respiratory distress. She has no photosensitivity or phono sensitivity. Pupils equal round reactive to light. Full range of motion of the neck without meningismus. Cardiopulmonary exam revealed tachycardia but no murmurs, wheezing rales or rhonchi. Patient denies any hemoptysis, history of blood clots, is not on oral contraceptive. Differential diagnosis includes, but is not limited to: ACS, pulmonary embolism, pneumonia, neck strain, migraine headache, panic attack, among others. The most morbid conditions were considered and workup was based on these. Workup in the Emergency Department included: Chest x-ray, EKG, CBC, CMP, TSH, troponin, D-dimer Laboratory studies interpreted by me personally. No leukocytosis, no anemia, platelets normal. D-dimer barely above the upper limit of normal at 0.51, however based on YEARS years criteria, she is negative and no CT PE is indicated. The remainder of her labs unremarkable and nonactionable. Negative test. TSH within normal limits. Troponin less than 0.01 with reassuring EKG. Chest x-ray interpreted by me personally prior to official radiology read. No focal consolidations, pneumothorax, or other acute findings. See final radiology report for details. On reassessment, patient is sleeping comfortably. Heart rate improved to the mid 80s. Is felt that patient likely has a muscle strain as the source of her symptoms given her unremarkable workup here today. Encouraged her to take Tylenol, ibuprofen and will prescribe Robaxin to help with symptoms. Also encouraged her to get lidocaine patches to help with her symptoms. Encouraged her to follow-up with her primary care physician if symptoms do not improve. Return precautions were given. All questions were answered. She demonstrated understanding and was discharged from emergency department in stable condition Critical Care Critical Care Time Critical Care Time: No
--- NOTE | 2024-08-24 22:13 | XR_ITS ---
PROCEDURE INFORMATION: Exam: XR Chest Exam date and time: 08/24/2024 10:41 PM Age: 34 years old Clinical indication: Pain; Radiating; Additional info: Chest pain TECHNIQUE: Imaging protocol: Radiologic exam of the chest. Views: 1 view. COMPARISON: No relevant prior studies available. FINDINGS: Lungs: Unremarkable. No consolidation. Pleural spaces: Unremarkable. No pleural effusion. No pneumothorax. Heart/Mediastinum: Unremarkable. No cardiomegaly. Bones/joints: Unremarkable. IMPRESSION: No acute findings.
--- OUTSIDE RECORDS SUMMARY | 2024-08-24 22:13 | XMS_ITS | Referral Summary ---
Author Organization [employer] ([place], [place], [place], [place]) Address [address] [place] [address] Care Team Providers Care National Sales Executive Name Role Phone Unavailable Primary Care Provider Unavailabl e Social History Tobacco Use Types Packs/Day Years Used Date Smoking Tobacco: Never Assessed Comments Unknown Sex and Gender Information Value Date Recorded Sex Assigned at Not on file Legal Sex Female 4:59 PM CDT Gender Identity Not on file Sexual Orientation Not on file Plan of Treatment Not on file
--- OUTSIDE RECORDS SUMMARY | 2024-08-24 22:13 | XMS_ITS | Encounter Summary ---
Author Organization [facility] ([place], [place], [place], [place]) Address [address] [place] [address] Care Team Providers Care Blender Laborer Name Role Phone Unavailable Primary Care Provider Unavailabl e Encounter Details Date Type Department Care Team (Late st Contact Info) Description 06/21/2018 Transcribed Document [facility] [place] Family Medicine [address] [place] [address] ProviderLaci MD [facility] [place] [address] Social History Tobacco Use Types Packs/Day Years Used Date Smoking Tobacco: Never Assessed Comments Unknown Sex and Gender Information Value Date Recorded Sex Assigned at Not on file Legal Sex Female 4:59 PM CDT Gender Identity Not on file Sexual Orientation Not on file documented as of this encounter Miscellaneous Notes * Cerner Conversion Note - Historical ProviderMD - 06/21/2018 11:00 AM CDT Pediatric Growth Entered On: 06/21/2018 11:00 EDT Performed On: 06/21/2018 11:00 EDT by Elif Pulliam Patient Beveler Height and Weight, Clinical Dosing Weight Source : Standing scale Weight Entry Format : [place] Clinical Dosing Weight : 76.36 kg Weight, Pounds : 168 lb Elif Pulliam Patient Beveler - 06/21/2018 11:00 EDT documented in this encounter Plan of Treatment Not on file documented as of this encounter Visit Diagnoses Not on filedocumented in this encounter
--- OUTSIDE RECORDS SUMMARY | 2024-08-24 22:13 | XMS_ITS | Encounter Summary ---
Author Organization [facility] ([place], [place], [place], [place]) Address [address] [place] [address] Care Team Providers Care Assistant Front Desk Manager Name Role Phone Unavailable Primary Care Provider Unavailabl e Encounter Details Date Type Department Care Team (Late st Contact Info) Description 06/21/2018 Transcribed Document [facility] Family Medicine [facility] [address] ProviderLaci MD [address] [place] [address] Social History Tobacco Use Types Packs/Day Years Used Date Smoking Tobacco: Never Assessed Comments Unknown Sex and Gender Information Value Date Recorded Sex Assigned at Not on file Legal Sex Female 4:59 PM CDT Gender Identity Not on file Sexual Orientation Not on file documented as of this encounter Miscellaneous Notes * Cerner Conversion Note - Laci Woodall MD - 06/21/2018 3:10 PM CDT Patient Education Materials Follows:and Gynecology Endometrial Ablation Endometrial ablation removes the lining of the uterus (endometrium). It is usually a same-day, outpatient treatment. Ablation helps avoid major surgery, such as surgery to remove the cervix and uterus (hysterectomy). After endometrial ablation, you will have little or no menstrual bleeding and may not be able to have children. However, if you are premenopausal, you will need to use a reliable method of control following the procedure because of the small chance that can occur. There are different reasons to have this procedure. These reasons include: ??? Heavy periods. ??? Bleeding that is causing anemia. ??? Irregular bleeding. ??? Bleeding fibroids on the lining inside the uterus if they are smaller than 3 centimeters. This procedure may not be possible for you if: ??? You want to have children in the future. ? You have severe cramps with your menstrual period. ? You have precancerous or cancerous cells in your uterus. ? You were recently . ? You have gone through menopause. ? You have had major surgery on your uterus, resulting in thinning of the uterine wall. Surgeries may include: ? The removal of one or more uterine fibroids (myomectomy). ? A section with a classic (vertical) incision on your uterus. Ask your health care provider what type of you had. Sometimes the scar on your skin is different than the scar on your uterus. Even if you have had surgery on your uterus, certain types of ablation may still be safe for you. Talk with your health care provider. LET YOUR HEALTH CARE PROVIDER KNOW ABOUT: ??? Any allergies you have. ??? All medicines you are taking, including vitamins, herbs, eye drops, creams, and fesp-uev-lpkbuvu medicines. ??? Previous problems you or members of your family have had with the use of anesthetics. ??? Any blood disorders you have. ??? Previous surgeries you have had. ??? Medical conditions you have. RISKS AND COMPLICATIONS Generally, this is a safe procedure. However, as with any procedure, complications can occur. Possible complications include: ??? Perforation of the uterus. ??? Bleeding. ??? Infection of the uterus, bladder, or vagina. ??? Injury to surrounding organs. ??? An air bubble to the lung (air embolus). ??? following the procedure. ??? Failure of the procedure to help the problem, requiring hysterectomy. ??? Decreased ability to diagnose cancer in the lining of the uterus. BEFORE THE PROCEDURE ??? The lining of the uterus must be tested to make sure there is no pre-cancerous or cancer cells present. ??? An ultrasound may be performed to look at the size of the uterus and to check for abnormalities. ??? Medicines may be given to thin the lining of the uterus. PROCEDURE During the procedure, your health care provider will use a tool called a resectoscope to help see inside your uterus. There are different ways to remove the lining of your uterus. ??? Radiofrequency ? This method uses a radiofrequency-alternating electric current to remove the lining of the uterus. ??? Cryotherapy ? This method uses extreme cold to freeze the lining of the uterus. ??? Heated-Free Liquid ? This method uses heated salt (saline) solution to remove the lining of the uterus. ??? Microwave ? This method uses high-energy microwaves to heat up the lining of the uterus to remove it. ??? Thermal balloon ? This method involves inserting a catheter with a balloon tip into the uterus. The balloon tip is filled with heated fluid to remove the lining of the uterus. AFTER THE PROCEDURE After your procedure, do not have sexual intercourse or insert anything into your vagina until permitted by your health care provider. After the procedure, you may experience: ??? Cramps. ??? Vaginal discharge. ??? Frequent urination. This information is not intended to replace advice given to you by your health care provider. Make sure you discuss any questions you have with your health care provider. Document Released: 12/10/2004 Document Revised: 10/22/2015 Document Reviewed: 07/04/2013 [employer] Interactive Patient Education ? 2017 [employer] Hysteroscopy, Care After Refer to this sheet in the next few weeks. These instructions provide you with information on caring for yourself after your procedure. Your health care provider may also give you more specific instructions. Your treatment has been planned according to current medical practices, but problems sometimes occur. Call your health care provider if you have any problems or questions after your procedure. WHAT TO EXPECT AFTER THE PROCEDURE After your procedure, it is typical to have the following: ??? You may have some cramping. This normally lasts for a couple days. ??? You may have bleeding. This can vary from light spotting for a few days to menstrual-like bleeding for 3?7 days. HOME CARE INSTRUCTIONS ??? Rest for the first 1?2 days after the procedure. ??? Only take nleh-kdk-bgvnvjg or prescription medicines as directed by your health care provider. Do not take aspirin. It can increase the chances of bleeding. ??? Take showers instead of baths for 2 weeks or as directed by your health care provider. ??? Do notdrive for 24 hours or as directed. ??? Do notdrink alcohol while taking pain medicine. ??? Do notuse tampons, douche, or have sexual intercourse for 2 weeks or until your health care provider says it is okay. ??? Take your temperature twice a day for 4?5 days. Write it down each time. ??? Follow your health care provider's advice about diet, exercise, and lifting. ??? If you develop constipation, you may: ? Take a mild laxative if your health care provider approves. ? Add bran foods to your diet. ? Drink enough fluids to keep your urine clear or pale yellow. ??? Try to have someone with you or available to you for the first 24?48 hours, especially if you were given a general anesthetic. ??? Follow up with your health care provider as directed. SEEK MEDICAL CARE IF: ??? You feel dizzy or lightheaded. ??? You feel sick to your stomach (nauseous). ??? You have abnormal vaginal discharge. ??? You have a rash. ??? You have pain that is not controlled with medicine. SEEK IMMEDIATE MEDICAL CARE IF: ??? You have bleeding that is heavier than a normal menstrual period. ??? You have a fever. ??? You have increasing cramps or pain, not controlled with medicine. ??? You have new belly (abdominal) pain. ??? You pass out. ??? You have pain in the tops of your shoulders (shoulder strap areas). ??? You have shortness of breath. This information is not intended to replace advice given to you by your health care provider. Make sure you discuss any questions you have with your health care provider. Document Released: 11/21/2013 Document Reviewed: 11/21/2013 [employer] Interactive Patient Education ? 2017 [employer] Pharmacology General Anesthesia, Adult, Care After These instructions provide you with information about caring for yourself after your procedure. Your health care provider may also give you more specific instructions. Your treatment has been planned according to current medical practices, but problems sometimes occur. Call your health care provider if you have any problems or questions after your procedure. What can I expect after the procedure? After the procedure, it is common to have: ??? Vomiting. ??? A sore throat. ??? Mental slowness. It is common to feel: ??? Nauseous. ??? Cold or shivery. ??? Sleepy. ??? Tired. ??? Sore or achy, even in parts of your body where you did not have surgery. Follow these instructions at home: For at least 24 hours after the procedure:??? Do not: ? Participate in activities where you could fall or become injured. ? Drive. ? Use heavy machinery. ? Drink alcohol. ? Take sleeping pills or medicines that cause drowsiness. ? Make important decisions or sign legal documents. ? Take care of children on your own. ??? Rest. Eating and drinking ??? If you vomit, drink water, juice, or soup when you can drink without vomiting. ??? Drink enough fluid to keep your urine clear or pale yellow. ??? Make sure you have little or no nausea before eating solid foods. ??? Follow the diet recommended by your health care provider. General instructions ??? Have a responsible adult stay with you until you are awake and alert. ??? Return to your normal activities as told by your health care provider. Ask your health care provider what activities are safe for you. ??? Take grnm-joe-ozvybpt and prescription medicines only as told by your health care provider. ??? If you smoke, do not smoke without supervision. ??? Keep all follow-up visits as told by your health care provider. This is important. Contact a health care provider if: ??? You continue to have nausea or vomiting at home, and medicines are not helpful. ??? You cannot drink fluids or start eating again. ??? You cannot urinate after 8?12 hours. ??? You develop a skin rash. ??? You have fever. ??? You have increasing redness at the site of your procedure. Get help right away if: ??? You have difficulty breathing. ??? You have chest pain. ??? You have unexpected bleeding. ??? You feel that you are having a life-threatening or urgent problem. This information is not intended to replace advice given to you by your health care provider. Make sure you discuss any questions you have with your health care provider. Document Released: 05/09/2001 Document Revised: 07/05/2016 Document Reviewed: 01/15/2016 Elsevier Interactive Patient Education ? 2017 [employer] documented in this encounter Plan of Treatment Not on file documented as of this encounter Visit Diagnoses Not on filedocumented in this encounter
--- OUTSIDE RECORDS SUMMARY | 2024-08-24 22:13 | XMS_ITS | Clinical Summary ---
Author Organization [employer] ([place], [place], [place], [place]) Address [address] [place] [address] Care Team Providers Care Mainspring Former [place] Name Role Phone Unavailable Primary Care Provider [...]
--- OUTSIDE RECORDS SUMMARY | 2024-08-24 22:13 | XMS_ITS | Encounter Summary ---
Author Organization [employer] ([place], [place], [place], [place]) Address [address] [place] [address] Care Team Providers Care Vendette Name Role Phone Unavailable Primary Care Provider Unavailabl e Encounter Details Date Type Department Care Team (Late st Contact Info) Description 06/21/2018 Transcribed Document [facility] Family Medicine [facility] [place] [address] ProviderLaci MD [facility] [place] [address] Social History Tobacco Use Types Packs/Day Years Used Date Smoking Tobacco: Never Assessed Comments Unknown Sex and Gender Information Value Date Recorded Sex Assigned at Not on file Legal Sex Female 4:59 PM CDT Gender Identity Not on file Sexual Orientation Not on file documented as of this encounter Miscellaneous Notes * Cerner Conversion Note - Laci ProviderMD - 06/21/2018 1:19 PM CDT [facility] IntraOp Summary Primary Physician: JONA BRENNAN III, MD Finalized Date/Time: 06/22/18 07:40:05 Pt. Name: PEG JONES LISA Simon/Sex: 1990 Female Med Rec #: [id number] Physician: JONA BRENNAN III, MD Financial #: [id number] Pt. Type: O Room/Bed: [facility] Admit/Disch: 06/21/18 10:00:00 - 06/21/18 15:35:00 Institution: [facility] IntraOp Case Attendance Entry 1 Entry 2 Entry 3 Case Attendee JONA BRENNAN III, MD MCDONALD, LEAH BETH, NA Gillenwater, Cheryl B, RN Role Performed Surgeon/Proceduralist, WOOD CUTTER/Nurse Director Of Primary Inspector [employer], First First Time In 06/21/18 13:02:00 06/21/18 13:02:00 06/21/18 13:02:00 Time Out 06/21/18 14:09:00 06/21/18 14:09:00 06/21/18 14:09:00 Procedure Uterine D and C Uterine D and C Uterine D and C Hysteroscopy, Hysteroscopy, Hysteroscopy, Endometrial Ablation Endometrial Ablation Endometrial Ablation Other Attendee Superficial Wound Closed By: Last Modified By: Cecy Huang, Cecy Huang, Cecy Huang RN 06/21/18 14:12:13 RN 06/21/18 14:12:13 RN 06/21/18 14:12:13 Entry 4 Case Attendee Aaron Mckeon, Spa Assistant Manager Role Performed Scrub, First Time In 06/21/18 13:02:00 Time Out 06/21/18 14:09:00 Procedure Uterine D and C Hysteroscopy, Endometrial Ablation Other Attendee Superficial Wound Closed By: Last Modified By: Cecy Huang RN 06/21/18 14:12:13 [facility] IntraOp Case Attendance Audit 06/21/18 14:12:13 Heat Treat Technician: HENRIECB Modifier: GILLECB 1 <+> Time Out 1 <*> Procedure Uterine D and C Hysteroscopy, Endometrial Ablation 2 <+> Time In 2 <+> Time Out 2 <*> Procedure Uterine D and C Hysteroscopy, Endometrial Ablation 3 <+> Time In 3 <+> Time Out 3 <*> Procedure Uterine D and C Hysteroscopy, Endometrial Ablation 4 <+> Time In 4 <+> Time Out 4 <*> Procedure Uterine D and C Hysteroscopy, Endometrial Ablation [facility] IntraOp Case Times Entry 1 Patient In Room Time 06/21/18 13:02:00 Out Room Time 06/21/18 14:09:00 Anesthesia Start Time 06/21/18 13:02:00 Stop Time 06/21/18 14:09:00 Anesthesia Ready 06/21/18 13:02:00 Surgery / Procedure Times Start Time 06/21/18 13:19:00 Stop Time 06/21/18 13:52:00 Last Modified By: Cecy Huang RN 06/21/18 14:11:54 [facility] IntraOp Case Times Audit 06/21/18 14:11:54 Heat Treat Technician: GILLECB Modifier: GILLECB 1 <*> Out Room Time 06/21/18 14:10:00 1 <*> Stop Time 06/21/18 14:10:00 1 <+> Stop Time 06/21/18 14:11:27 Heat Treat Technician: MILLICENT Modifier: GILLECB <+> 1 Out Room Time <+> 1 Stop Time [facility] IntraOp Communication Entry 1 Communication To Family/Significant other Comment communication board Communication By Cecy Huang RN Date and Time 06/21/18 13:25:00 Last Modified By: Cecy Huang RN 06/21/18 13:34:47 [facility] IntraOp Counts Verification Entry 1 Procedure Uterine D and C Hysteroscopy, Endometrial Ablation Count Info Count Type Sponge Counts Verification Baseline/pre-procedure Sequence Count Results Not Applicable Counts Performed By Count Performed By Aaron Mckeon Spa Assistant Manager (Scrub) Count Performed By Cecy Huang (RN) RN Last Modified By: Cecy Huang RN 06/21/18 13:35:09 [facility] IntraOp Counts Final Entry 1 Procedure Uterine D and C Hysteroscopy, Endometrial Ablation Final Count Info Count Type Sponge Counts Verification Skin Closure/end of Sequence procedure Count Results Correct, surgeon notified Counts Performed By Count Performed By Aaron Mckeon Spa Assistant Manager (Scrub) Count Performed By Cecy Huang (RN) RN Last Modified By: Cecy Huang RN 06/21/18 14:11:10 [facility] IntraOp Counts Final Audit 06/21/18 14:11:10 Heat Treat Technician: MILLICENT Modifier: GILLECB 1 <*> Procedure Uterine D and C Hysteroscopy, Endometrial Ablation 1 <+> Counts Verification Sequence 06/21/18 14:10:54 Heat Treat Technician: SAPNAB Modifier: GILLECB 1 <*> Procedure Uterine D and C Hysteroscopy, Endometrial Ablation [facility] IntraOp Delays Entry 1 Delay Reason Surgeon late - at office, Surgeon late - called in Duration 32 Minute(s) Last Modified By: Cecy Huang RN 06/21/18 13:40:06 [facility] IntraOp Delays Audit 06/21/18 13:40:06 Heat Treat Technician: MILLICENT Modifier: GILLECB 1 <*> Delay Reason Surgeon late - at office [facility] IntraOp Departure from OR Entry 1 Integumentary Assessment Integumentary WDL Assessment WDL Transfer/Handoff Transfer to PACU Phase I Handoff Method Bedside/Face to face Post-op Transport Stretcher/Gurney Via Patient Transport Cecy Huang, Accompanied by RN Last Modified By: Cecy Huang RN 06/21/18 13:38:31 [facility] IntraOp Fire Risk Assessment Entry 1 Fire Info Surgical Site or 0- No Incision Above the Xyphoid Open O2 Source 0- No (Mask or Cannula) Available Ignition 1- Yes (ESU, Laser, Light Source) Fire Risk 1 Assessment Score Fire Score Fire Risk Yes Assessment Complete Fire Risk Cecy Huang, Assessment Verified RN By Fire Risk 06/21/18 13:02:00 Assessment Verified Date/Time Fire Risk Standard Fire Yes Safety Precautions Followed Last Modified By: Cecy Huang RN 06/21/18 13:40:59 [facility] IntraOp General Case Government Program Manager 1 Case Information OR OR 04 [facility] Case Level 1 Room Verified Yes Wound Class II - Clean-Contaminated Specialty SN Gynecology Anesthesia Type General ASA Class 2 Diagnosis Preop Diagnosis menorrahgia Postop Diagnosis as dictated - see md notes Last Modified By: Cecy Huang RN 06/21/18 13:41:54 [facility] IntraOp Intraoperative Assessment Entry 1 Handoff Method Other Valid History / Yes Physical in Chart Preoperative Yes Checklist Reviewed/Evaluated Patient is Latex No Sensitive Isolation Not applicable Precautions Noted Level of WDL Consciousness (WDL = Alert, Oriented to Person, Place, and Time) Skin Assessment Yes Verified Present Upon IVs Arrival to OR Last Modified By: Cecy Huang RN 06/21/18 14:01:06 [facility] IntraOp Intraoperative Equipment Entry 1 Type Monitoring Equipment Intraop Monitoring Electrocardiogram Three lead placement (ECG) Electrode Placement Blood Pressure Non-Invasive BP Device Source Blood Pressure Arm, left upper Location Pulse Oximeter Hand, right Probe Site Antiembolic Devices Antiembolic Devices Sequential compression device, knee high Antiembolic Device Bilateral Location Scopes Photo/Video Documentation Photo Yes Video No Intraop Equipment scds on and inflated Comment prior to induction Last Modified By: Cecy Huang RN 06/21/18 14:01:51 [facility] IntraOp Medication Admin Entry 1 Medication/Irrigant silver nitrate sticks 10 per pack - [id number] Route of topical Administration Dose Dose 4 Unit of Measure swab Volume qs Administered By JNOA BRENNAN III, MD Procedure Irrigation Last Modified By: Cecy Huang RN 06/21/18 14:12:41 [facility] IntraOp Medication Admin Audit 06/21/18 14:12:41 Heat Treat Technician: MILLICENT Modifier: MILLICENT 1 <*> Medication/Irrigant silver nitrate sticks 10 per pack - [id number] [facility] IntraOp Patient Positioning Entry 1 Procedure Uterine D and C Hysteroscopy, Endometrial Ablation Body Position Lithotomy Left Arm Position Secured on padded arm board Right Arm Position Secured on padded arm board Left Leg Position Secured in Leg Florentino Right Leg Position Secured in Leg Florentino Position Comments bilateral upper extremities positioned less than 90 degree angle Feet Uncrossed Yes Pressure Points Yes Checked Positioning Devices Pillows, Stirrups/Leg Florentino, Sling, Arm Board, Safety Strap, Arm(s) Positioned By JONA BRENNAN III, MD, CARMEN MAURER NA, Cecy Huang RN Position Verified Positioning Yes Verified by Anesthesia Positioning Yes Verified by Surgeon Last Modified By: Cecy Huang RN 06/21/18 14:04:04 [facility] IntraOp Sign In Entry 1 Patient, Site, Yes Procedure Identified Surgical Consent Yes Confirmed Relevant Surgical Yes Documents Available Surgical Site N/A Marked by person performing procedure Anesthesia Machine Yes Check Completed Medication Checks Yes Completed Allergies Yes Airway Difficult No Airway/Aspiration Risk Difficult Yes Airway/Aspiration Intervention Equipment Available Blood Loss Risk No Blood Loss No Intervention Equipment Prepared and Ready Hypothermia Risk Yes Warming Measures Yes Taken Last Modified By: Cecy Huang RN 06/21/18 14:09:23 [facility] Intra Op Sign Out Entry 1 RN Confirmation Surgical Yes Procedure(s) Identified Instrument, Sponge Yes and Sharps Counts Correct/Documented Equipment Problems N/A Documented Specimen Labeled Yes Correctly Urinary Catheter N/A Documented in IView Arnold Patient Yes Recovery Concerns Reviewed with Anesthesia Provider, Surgeon and RN Arnold Patient Yes Management Concerns Reviewed with Anesthesia Provider, Surgeon and RN Safety Checklist Yes Elements Complete? RN Sign Out Cecy Huang, Signature RN RN Sign Out 06/21/18 14:09:00 Signature Date/Time Plan of Care Outcome - Fire Risk OUTCOME STATEMENT: Goal met Patient is free from injury related to surgical fire Plan of Care Outcome - Pt Positioning OUTCOME STATEMENT: Goal met Absence of signs and symptoms of positioning injury. Plan of Care Outcome - Skin Prep OUTCOME STATEMENT: Goal met Intraoperative care is consistent with measures to prevent infection Plan of Care Outcome - Xray/Images OUTCOME STATEMENT: N/A Absence of observable signs or symptoms of radiation injury Plan of Care Outcome - Counts OUTCOME STATEMENT: Goal met Absence of signs and symptoms of injury related to extraneous objects Last Modified By: Cecy Huang RN 06/21/18 14:09:49 [facility] IntraOp Skin Prep Entry 1 Procedure Uterine D and C Hysteroscopy, Endometrial Ablation Prescribed Yes Pre-Surgical Prep Completed Prep Area VAGINA Intraop Prep Integumentary WDL Assessment WDL Prep Agents Betadine solution, Betadine scrub Prep by Cecy Huang RN Hair Removal Methods No hair removal performed Last Modified By: Cecy Huang RN 06/21/18 14:10:38 [facility] IntraOp Surgical Procedures Entry 1 Entry 2 Procedure Uterine D and C Endometrial Ablation Hysteroscopy Modifiers Additional HYSTEROSCOPY Procedure DILATATIION AND Description CURATTAGE WITH NOVASURE Primary Procedure Yes No Primary Surgeon JONA BRENNAN III, MD GREENE III, JOHN F, MD Start 06/21/18 13:19:00 06/21/18 13:19:00 Stop 06/21/18 13:52:00 06/21/18 13:52:00 Physician States Cecum Reached Anesthesia Type General General Specialty SN Gynecology SN Gynecology Wound Class II - Clean-Contaminated II - Clean-Contaminated Last Modified By: Cecy Huang, Cecy Huang RN 06/21/18 14:12:09 RN 06/21/18 14:12:09 [facility] IntraOp Surgical Procedures Audit 06/21/18 14:12:09 Heat Treat Technician: MILLICENT Modifier: HENRIECB 1 <*> Procedure Uterine D and C Hysteroscopy 1 <+> Stop <+> 2 Stop [facility] IntraOp Time Out Entry 1 Procedure to be Uterine D and C Performed Hysteroscopy, Endometrial Ablation Time Out Time Out Pause Time 06/21/18 13:18:00 All activity Yes suspended (unless life threatening emergency) Team Verbally Correct patient Confirms Information identity, Correct side and site are marked, Consent form is present and accurate, Agreement on the procedure to be done, Correct patient position, Relevant images/results properly labeled/appropriately displayed, Confirm antibiotics have been administered, Confirm the skin prep has dried, Confirm prosthesis/implant/devic e is present, Performed in location of procedure after prepped/draped, Performed before each procedure if multiple procedures, Reconcile problems if responses among team members differ Antibiotic Yes Prophylaxis Administered Or In Progress Within the Last 60 Minutes Beta Gary N/A Administered Venous Yes Thromboembolism Prophylaxis Required Anticipated Critical Events Surgeon None expected Anesthesia Provider Patient specific concerns Nursing Assures Sterility of instruments, Equipment concerns or issues Essential Imaging N/A Labeled and Displayed Last Modified By: Cecy Huang RN 06/21/18 13:23:46 Case Comments <None> Finalized By: Coral Gibbs RN Document Signatures Signed By: Cecy Huang RN 06/21/18 14:12 Coral Gibbs RN 06/22/18 07:40 Unfinalized History Date/Time Username Reason for Unfinalizing Freetext Reason for Unfinalizing 06/22/18 07:39 LACI Chart Audit documented in this encounter Plan of Treatment Not on file documented as of this encounter Visit Diagnoses Not on filedocumented in this encounter
--- OUTSIDE RECORDS SUMMARY | 2024-08-24 22:13 | XMS_ITS | Clinical Summary ---
Author Organization Healthcare Address [address] [place] [address] Care Team Providers Care Make Up Worker Name Role Phone Unavailable Primary Care Provider Unavailabl e Social History Tobacco Use Types Packs/Day Years Used Date Smoking Tobacco: Never Assessed Comments Unknown Sex and Gender Information Value Date Recorded Sex Assigned at Not on file Legal Sex Female 8:19 PM EDT Gender Identity Not on file Sexual Orientation Not on file Plan of Treatment Not on file
--- OUTSIDE RECORDS SUMMARY | 2024-08-24 22:13 | XMS_ITS | Encounter Summary ---
Author Organization [employer] ([place], [place], [place], [place]) Address [address] [place] [address] Care Team Providers Care Grinder Operator Tool Name Role Phone Unavailable Primary Care Provider Unavailabl e Encounter Details Date Type Department Care Team (Late st Contact Info) Description 06/21/2018 Transcribed Document [facility] [address] [place] [address] ProviderLaci MD [facility] [place] [address] Social History Tobacco Use Types Packs/Day Years Used Date Smoking Tobacco: Never Assessed Comments Unknown Sex and Gender Information Value Date Recorded Sex Assigned at Not on file Legal Sex Female 4:59 PM CDT Gender Identity Not on file Sexual Orientation Not on file documented as of this encounter Miscellaneous Notes * Cerner Conversion Note - Laci ProviderMD - 06/21/2018 12:30 PM CDT [facility] PreOp Summary Primary Physician: JONA BRENNAN III, MD Finalized Date/Time: 06/21/18 13:10:09 Pt. Name: PEG JONES LISA Simon/Sex: 1990 Female Med Rec #: [id number] Physician: JONA BRENNAN III, MD Financial #: [id number] Pt. Type: O Room/Bed: [facility] Admit/Disch: 06/21/18 10:00:00 - Institution: [facility] PreOp Case Times Entry 1 In Preop 06/21/18 10:15:00 Ready for Holding n/a Room Patient Ready for 06/21/18 12:00:00 Surgery Patient Out of Preop 06/21/18 13:02:00 Patient Out of n/a Holding Room Last Modified By: KAREN GARCIA 06/21/18 13:10:05 [facility] PreOp Case Times Audit 06/21/18 13:10:05 Eap Specialist: ALEXIS Modifier: [email or web address] <+> 1 Patient Out of Preop Finalized By: KAREN GARCIA Document Signatures Signed By: KAREN GARCIA 06/21/18 13:10 Electronically signed by Karlie [facility] Conversion Industrial Education Instructor Cerner at 06/02/2022 10:46 AM CDT documented in this encounter Plan of Treatment Not on file documented as of this encounter Visit Diagnoses Not on filedocumented in this encounter
--- OUTSIDE RECORDS SUMMARY | 2024-08-24 22:13 | XMS_ITS | Encounter Summary ---
Author Organization [facility] ([place], [place], [place], [place]) Address [address] [place] [address] Care Team Providers Care Fuel Operator Name Role Phone Unavailable Primary Care Provider Unavailabl e Encounter Details Date Type Department Care Team (Late st Contact Info) Description 06/21/[address] [facility] [place] [address] ProviderLaci MD [address] [place] [address] Social History Tobacco Use Types Packs/Day Years Used Date Smoking Tobacco: Never Assessed Comments Unknown Sex and Gender Information Value Date Recorded Sex Assigned at Not on file Legal Sex Female 4:59 PM CDT Gender Identity Not on file Sexual Orientation Not on file documented as of this encounter Miscellaneous Notes * Cerner Conversion Note - Laci Woodall MD - 06/21/2018 1:49 PM CDT DATE OF PROCEDURE: 06/21/2018 PREOPERATIVE DIAGNOSIS(ES): Menorrhagia. POSTOPERATIVE DIAGNOSIS(ES): Menorrhagia. PROCEDURE: 1. NovaSure endometrial ablation. 2. Hysteroscopy. SURGEON: Lul Ruiz III, MD COMPLICATIONS: None. FINDINGS: Normal uterine cavity. DESCRIPTION OF PROCEDURE: Patient was taken to the operating room and general LMA was achieved. She was prepped and draped in usual sterile fashion. We then dilated her to 8 mm. Hysteroscope was placed. Normal uterine cavity was noted. Measurements were taken. NovaSure apparatus was placed. On the first two tries, did not past the uterine cavity test; therefore, a hysteroscopy was reperformed and the uterine cavity appeared normal. We switched out NovaSure and passed the cavity test. Ablation was performed approximately 1 minute. Hysteroscopy was performed afterwards again. Good cauterization of the endometrial lining was noted except there was a little bit of possibly blood and cauterizer pulled off in the left corneal segment. Counts were correct at the end of the case. Time-out was performed prior to case beginning. She wore pneumatic compression devices on lower extremities throughout. She should be able go home later on today. She will use ibuprofen for pain control. She will follow up in one week. Routine postoperative instruction precautions reviewed. ADDENDUM: We did put some silver nitrate on the cervix where the tenaculum was and achieved hemostasis. Lul Ruiz III, M.D. Dict: 06/21/2018 13:49:12 Trans: 06/21/2018 18:46:44 CC1: Lul Ruiz III, M.D. Electronically signed by Karlie, [facility] Conversion Marketing Specialist Cerner at 06/02/2022 11:10 AM CDT documented in this encounter Plan of Treatment Not on file documented as of this encounter Visit Diagnoses Not on filedocumented in this encounter
--- OUTSIDE RECORDS SUMMARY | 2024-08-24 22:13 | XMS_ITS | Patient Health Record ---
Author Organization [facility] [place] Address [address] [place] [address] Care Team Providers Care Psych Np Name Role Phone NO PCP Primary Care Provider Geneva Macedo Unavailable [phone] Reason For Referral No Information Immunizations Vaccine Route Administration Date Status Comme nts PPD Aplisol ID Intradermal 04/03/2019 Administered Encounters Encounter Location Date Provider Diagnosis [id number] [id number] 08/06/2024 Geneva James Tuberculosis screeni ng Z11.1 Assessments Encounter Date Diagnosis (ICD Code) Assessment Notes Treatment Notes Treatment Clinical Notes Section Notes 08/06/2024 Tuberculosis screening (ICD-10 - Z11.1) Plan Of Treatment No Information Insurance Providers Payer Name Payer Address Payer Phone Subscriber Number Group Number Insured Name Patient Relationship to Insured Coverage Start Date Coverage End Date [facility] [address] [place] [address] [id number] Peg Lea Self - patient is the insured
--- OUTSIDE RECORDS SUMMARY | 2024-08-24 22:13 | XMS_ITS | Data Portability ---
Author Organization [facility] Address [address] [address] Assessment No assessment recorded. Plan of Treatment Reminders Order Date Submit Date Provider Last Modified By Organization Details Last Modified Time Details Appointments None recorded. Lab None recorded. Referral None recorded. Procedures None recorded. Surgeries None recorded. Imaging None recorded. Medication Orders Zepbound 2.5 mg/0.5 mL subcutaneou s pen injector 2024 025 [place] [facility][id number], [address], [id number], 5 11:36:42 Effexor XR 150 mg capsule,ext ended release 2023 024 [place] [id number], [address], [id number], 4 10:24:48 Zepbound 2.5 mg/0.5 mL subcutaneou s pen injector 2023 025 [id number], 629 [facility] [address] [place], [place], [id number], 5 10:59:06 Patient TargetsNo targets recorded. Patient Instructions Encounter Date Encounter Id Patient Instructions Last Modified By Organization Details Last Modified Time 12/19/2023 [id number] learning about mood disorders [email or web address] Not available 12/19/2023 10:24:28 05/31/2024 [id number] learning about healthy weight [email or web address] Not available 05/31/2024 11:36:36 Reason for Referral None Reported. Problems Name Problem SNOMED Code Status Onset Date Resolution Date Notes Provider Name and Address Organization Details Recorded Time Depressive disorder 51487168 Active 024 SHILOH Chowdhury [address] [place] [address], [id number], [employer] 4 11:08:48 Acute urinary tract infection 673170888 Active 024 SHILOH Chowdhury [address] [place] [address], [phone], [employer] 5 10:16:32 Problem Notes None recorded. Procedures Surgical History Date Name Laterality Status Provider Name and Address Organization Details Recorded Time 0 Date of Last Pap Smear completed [employer] 12/19/2023 10:06:12 Caesarean Section completed [employer] 12/19/2023 10:06:13 Tubal Ligation completed [facility] 12/19/2023 10:06:13 Endometrial Ablation completed [facility] 12/19/2023 10:06:13 Imaging Results None recorded. Procedure Notes None recorded. Medical Equipment None Reported. Allergies No known drug allergies Medications Name Sig Start Date Stop Date Status Note LastModified by Organization Details LastModified Time Prescriptio n - Prior Authorizati on Request active Not Available Not Available N ot Available Pyridium 200 mg tablet Take 1 tablet 3 times a day by oral route as needed for 2 days. 2024 active Not Available Not Available Not Avai lable Effexor XR 150 mg capsule,ext ended release Take 1 capsule(s ) every day by oral route as directed for 90 days. 2024 active Not Available Not Available Not Avai lable levofloxaci n 500 mg tablet Take 1 tablet every 24 hours by oral route as directed for 7 days. 2024 active Not Available Not Available Not Avai lable Zepbound 5 mg/0.5 mL subcutaneou s pen injector Inject 0.5 mL every week by subcutane ous route as directed for 28 days, for weight loss. 05/31 completed Not Available Not Available Not Available Zepbound 2.5 mg/0.5 mL subcutaneou s pen injector Inject by subcutane ous route for 28 days. active Not Available Not Available No t Available Zepbound 7.5 mg/0.5 mL subcutaneou s pen injector Inject by subcutane ous route for 28 days. 2024 active Not Available Not Available Not Avai lable Vitals Date Recorded Body height Body mass index (BMI) Body weight Oxygen saturation Oxygen saturation in Arterial blood by Pulse oximetry Heart rate Body temperature Systolic And Diastolic Provider Name and Address Organization Details Last Updated DateTime 5 162.56 cm 27 kg/m2 16454.7 2 g 97 % 97 % 100 /min 98.1 [degF] 116/76 mm[Hg] [employer] 5 10:56:53 Date Recorded Body height Body mass index (BMI) Body weight Heart rate Oxygen saturation Oxygen saturation in Arterial blood by Pulse oximetry Systolic And Diastolic Provider Name and Address Organization Details Last Updated DateTime 4 162.56 cm 30.9 kg/m2 85821.3 5 g 94 /min 97 % 97 % 114/79 mm[Hg] [facility] 4 10:05:45 Social History Question Answer Notes LastModified by Organizat ion Details LastModified Time Tobacco Smoking Status Never Smoker [employer] 12/19/2023 10:06:12 Do You Have An Advance Directive? No Information not available 12/19/2023 Is Your Home Air Conditioned? Yes Information not available 12/19/2023 If You Are , What Was Your Level Of Alcohol Consumption Prior To ? None Information not available 12/19/2023 Do You Wear A Helmet When Biking? Yes Information not available 12/19/2023 Are You Blind Or Do You Have Difficulty Seeing? No Information not available 12/19/2023 What Is Your Level Of Caffeine Consumption? Moderate Information not available 12/19/2023 What Type Of Merchandise Coordinator Do You Use? None Information not available 12/19/2023 Have You Been To An Area Known To Be High Risk For COVID-19? No Information not available 12/19/2023 Are You Deaf Or Do You Have Serious Difficulty Hearing? No Information not available 12/19/2023 What Type Of Diet Are You Following? REGULAR Information not available 12/19/2023 What Is The Highest Grade Or Level Of School You Have Completed Or The Highest Degree You Have Received? [id number] Information not available 12/19/2023 Who Is Your Employer? [employer] Information not available 12/19/2023 Have There Been Any Changes To Your Family Or Social Situation? No Information no t available 12/19/2023 Are There Any Guns Present In Your Home? No Information not available 12/19/2023 Which Of Your Hands Is Dominant? Right Information not available 12/19/2023 Do You Have A Medical Power Of Community Engagement Coordinator? No Information not available 12/19/2023 What Was The Date Of Your Most Recent Tobacco Screening? 05/31/2024 Information not available 05/31/2024 Do You Have Any Pets? Yes Information not available 12/19/2023 Do You Use Protection During Sex? No Information not available 12/19/2023 What Is Your Relationship Status? Information not available 12/19/2023 Have You Repeated Any Grades? No Information not available 12/19/2023 Do You Use Your Seat Belt Or Car Seat Routinely? Yes Information not available 12/19/2023 Are You Sexually Active? Yes Information not available 12/19/2023 Do You Have Smoke And Carbon Monoxide Detectors In Your Home? Yes Information not available 12/19/2023 Are You Passively Exposed To Smoke? No Information no t available 12/19/2023 Are There Any Smokers In Your House? No Information not available 12/19/2023 Do You Participate In Social Media? Yes Information not available 12/19/2023 Do You Use Sunscreen Routinely? Yes Information not available 12/19/2023 Has Tobacco Cessation Counseling Been Provided? No Information not available 12/19/2023 Have You Recently Traveled Abroad? No Information not available 12/19/2023 Do You Have Difficulty Walking Or Climbing Stairs? No Information not available 12/19/2023 Are You Currently In School? No Information not available 12/19/2023 What Contraceptive Method Was Reported At Start Of This Visit? Female Sterilization Information not available 05/31/2024 Do You Have Any Dietary Restrictions? No Information not available 12/19/2023 Sex: Female Functional Status Question Answer Note LastModified by [employer] Details LastModified Time Do you use any illicit or recreational drugs? No Information not available 12/19/2023 Do you or have you ever used any other forms of tobacco or nicotine? No Information not available 12/19/2023 What is your level of alcohol consumption? None Information not available 12/19/2023 Are you currently employed? Yes Information not available 12/19/2023 Do you have transportation difficulties? No Information not available 12/19/2023 Are you able to walk? [employer]OREST Information not available 12/19/2023 Do you have difficulty doing errands alone? No Information not available 12/19/2023 Are you able to care for yourself? Yes Information not available 12/19/2023 Do you have difficulty dressing or bathing? No Information not available 12/19/2023 What is your exercise level? None Information not available 12/19/2023 Mental Status Question Answer Note LastModified by Organizat ion Details LastModified Time Do you feel stressed (tense, restless, nervous, or anxious, or unable to sleep at night)? [id number] Information not available 12/19/2023 Do you have difficulty concentrating, remembering or making decisions? No Information no t available 12/19/2023 Are you or have you been involved with bullying? No Information not available 12/19/2023 Family History Relationship Description Onset Age of this Age Resolved Age Notes LastModified by Organization Details LastModified Time Maternal Grandfather Malignant neoplastic disease Not available 2023 10:07:09 Paternal Grandmother Diabetes mellitus Not available 2023 10:07:26 Medical History Condition Response Coronary Artery Disease N Gout N Other N Blood Diseases N Kidney Stones N Hyperthyroidism N Breast Cancer N Blood Transfusion N Emergency room visit since last appointm ent. N Dermatologic Disorders N Depression Y COPD N Lung Disease N Hypothyroidism N Developmental or Behavioral Disorders N Defects or Inherited Disease N Breast Problem N Difficulty Swallowing N Anesthesia Complications N History of STI N Meniere's disease N Anxiety Disorder Y Muscle, Joint, or Bone Problems N Autoimmune disease N Vision or Eye Problems N Arthritis N Polyps N Infertility N Mental Disorder N Congenital Anomalies N Acid Reflux (GERD) N Cancer N Stroke N Neurologic/Epilepsy N Endometriosis N Bladder or Kidney Problems N High Cholesterol N Liver Disease N Psychiatric/Mental Health Condition N Organ Transplant N Dialysis N Fibromyalgia N Schizophrenia N Headaches N Kidney Disease N Allergies/Hayfever N Heart Problems N Ear or Hearing Problems N Hospitalizations N Learning Disorder N Artificial Joints N Thyroid Problems N GI Problems N Acne N ADD/ADHD N Eating Disorder N Anemia N Constipation N Mental Illness N Ovarian Cancer N Diabetes N Bedwetting N Hepatitis/Liver Disease N Tuberculosis N Eczema N Diverticulitis N Abuse/Domestic Violence N Asthma N Trauma/Violence N Substance Abuse N Reflux/GERD N Depression/ depression N Hepatitis N Heart Disease N Pulmonary Embolism N Tourette Syndrome N Pre-Eclampsia N Hypertension N Chronic Ear Infections N Osteoporosis N Chicken Pox N Autism Spectrum Disorder (ASD) N Thrombophilias N Gynecological History Statement/Question Response Abnormal Pap N Flow Light Date of LMP 05/18/2024 HPV Vaccine Y Duration of Flow (days) 7 Most Recent Mammogram Current Control Method Tubal Ligat ion Age at Menarche 12 Age at First Child 17 Frequency of Cycle (Q days) 28 Menses Monthly Y Date of Last Pap Smear 06/24/2019 LMP Approximate Obstetrics History GPAL:G 0 P 0 0 0 0 Immunizations Vaccine Type Date Status Note Provider Nam e and Address Organization Details Recorded Time Influenza, split virus, quadrivalent, PF 11/23/2017 completed Not Available [employer] 5 10:43:44 Past Encounters Encounter ID Performer Location Encounter Start Date Encounter Closed Date Diagnosis/Indication Diagnosis SNOMED-CT Code Diagnosis ICD10 Code Diagnosis Note [id number] SHILOH Chowdhury [facility] [address] [place] [address] 12/19/2023 09:47:45 12/19/2023 10:45:59 Depressive disorder 94326101 F32.A Body mass index 30+ - obesity 930906812 Z68.30 [id number] SHILOH Chowdhury [facility] [address] [place] [address] 05/31/2024 10:42:41 05/31/2024 13:12:52 Body mass index 25-29 - overweight 935018981 Z68.27 Health Concerns Section Related Observation LastModified by Organization Detai ls LastModified Time None Recorded Concern Status LastModified by Organization Details LastModified Time None Recorded Advance Directives Directive N: Payers Insurance Date Sequence Insurance Name Policy Number Policy Florentino Covered Member ID Florentino Member ID Guarantor Name 05/28/2024 1 [id number] ([facility]) [id number] [place] Lea [id number] Notes Date Note Type Note Provider Name and Address Organization Details Recorded Time 12/19/2023 text/html Patient presents to establish care at [facility].History anxiety/depressi on. Doing well on Effexor. Due for refills.Would like to try something for weight loss. Tried Saxenda in the past and got extremely ill. Wonders if there is a different option. SHILOH Chowdhury [address] [place] [address], [phone], [employer] 12/19/2023 11:11:34 05/31/2024 text/html Patient presents for followup. History of obesity/now overweight. Needs refills on Zepbound. Has lost 23 pounds since December.12/19/23 180.2 BMI 30.94/ 157.3 BMI 27.0 SHILOH Chowdhury [address] [place], [address], [employer] 05/31/2024 12:37:47 OBGyn Episode No OBEpisode recorded.
--- OUTSIDE RECORDS SUMMARY | 2024-08-24 22:13 | XMS_ITS | Encounter Summary ---
Author Organization [employer] ([place], [place], [place], [place]) Address [address] [place] [address] Care Team Providers Care Insurance Verification Specialist Name Role Phone Unavailable Primary Care Provider Unavailabl e Encounter Details Date Type Department Care Team (Late st Contact Info) Description 06/21/[address] [facility] [place] [facility] [place] [address] ProviderLaci MD [facility] [address] Social History Tobacco Use Types Packs/Day Years Used Date Smoking Tobacco: Never Assessed Comments Unknown Sex and Gender Information Value Date Recorded Sex Assigned at Not on file Legal Sex Female 4:59 PM CDT Gender Identity Not on file Sexual Orientation Not on file documented as of this encounter Miscellaneous Notes * Cerner Conversion Note - Laci Woodall MD - 06/21/2018 3:17 PM CDT [address] [address] PEG JONES LISA :1990 Visit Time:06/21/2018 What to do next Your Diagnosis Excessive and frequent menstruation with irregular cycle, Excessive and frequent menstruation with irregular cycle Instructions From Your Care Team Rest and relax, notify doctor of any chest pain, shortness of breath, unrelieved nausea or vomiting May shower in 24 hours No ibuprofen until 9:00 pm Follow-Up Appointments Follow Up with JONA BRENNAN III, MD When 06/29/2018 10:30 AM EDT Where: [address] [address]- Medications What How Much When Instructions Next Dose venlafaxine (Effexor XR 75 mg oral capsule, extended release) 1 Capsule(s) Oral Every Day Take your medications faithfully. Do NOT skip medication. Do NOT stop taking medications without the direction of a physician. Carry a list of your medications with you at all times, and take this medication list with you to your first follow up visit. Report any side effects. Avoid herbal remedies unless discussed with your physician. As part of your treatment plan, your physician may have prescribed a limited course of a controlled substance. This medication may be given to help people with moderate or severe pain or for other medical conditions, but there are risks involved with treatment. Common side effects may include nausea, constipation, drowsiness, sweating, itching, dry mouth, and rash. More serious side effects may include cognitive and motor impairment, like problems with thinking, concentrating, alertness, and movement (e.g. slowed reflexes), and driving and operating heavy machinery can be dangerous. It is important for you to talk to your physician if you have these side effects or questions. These controlled substances can produce physical dependence and be habit-forming if taken for an extended period of time, which means that the body has gotten used to them and may experience withdrawal symptoms if they are abruptly stopped. Withdrawal symptoms can include runny nose, sweating, goose bumps, diarrhea, abdominal cramping, rapid heartbeat, difficulty sleeping, and nervousness. Please dispose of unused and medications per pharmacy guidance. Education Materials Endometrial Ablation Endometrial ablation removes the lining [...] want to have children in the future. ??? You have severe cramps with your menstrual period. ??? You have precancerous or cancerous cells in your uterus. ??? You were recently . ??? You have gone through menopause. ??? You have had major surgery on your [...] including vitamins, herbs, eye drops, creams, and vexv-nzi-wspomaw medicines. ??? Previous problems you or members [...] the lining of your uterus. ??? Radiofrequency ??? This method uses a radiofrequency-alternating electric current to remove the lining of the uterus. ??? Cryotherapy ??? This method uses extreme cold to freeze the lining of the uterus. ??? Heated-Free Liquid ??? This method uses heated salt (saline) solution to remove the lining of the uterus. ??? Microwave ??? This method uses high-energy microwaves to heat up the lining of the uterus to remove it. ??? Thermal balloon ??? This method involves inserting a catheter with [...] 12/10/2004 Document Revised: 10/22/2015 Document Reviewed: 07/04/2013 [employer] Interactive Patient Education ?? 2017 [employer] Hysteroscopy, Care After Refer to this [...] a few days to menstrual-like bleeding for 3???7 days. HOME CARE INSTRUCTIONS ??? Rest for the first 1???2 days after the procedure. ??? Only take [id number]-[id number] or prescription medicines as directed by your [...] Take your temperature twice a day for 4???5 days. Write it down each time. ??? [...] or available to you for the first 24???48 hours, especially if you were given a [...] provider. Document Released: 11/21/2013 Document Reviewed: 11/21/2013 [employer] Interactive Patient Education ?? 2017 [employer] General Anesthesia, Adult, Care After These instructions [...] For at least 24 hours after the procedure: ??? Do not: ? Participate in activities where [...] activities are safe for you. ??? Take veqi-rey-yufzbgf and prescription medicines only as told by [...] eating again. ??? You cannot urinate after 8???12 hours. ??? You develop a skin rash. [...] Document Reviewed: 01/15/2016 Elsevier Interactive Patient Education ?? 2017 [employer] Emergency Awareness and Preventative Care STROKE is an EMERGENCY Every Minute Counts Act FAST and Check for these signs: FACE Does the face look uneven? ARM Does one arm drift down? SPEECH Does their speech sound strange? TIME Call at any sign of stroke Stroke Risk Factors Atrial Fibrillation (irregular heartbeat) Diabetes Family history of stroke Heart Disease Heavy alcohol use High Blood Pressure High Cholesterol Physical inactivity and obesity Smoking Cigarette Smoking The facts are clear, cigarette smoking will shorten your life. Smoking can cause many illnesses along the way. As a healthcare provider, we recommend that you stop smoking. Assistance with quitting is available by contacting 2-465-XVDNNOW. This is a free resource providing counseling, support, and referral. Or you may contact your personal physician. [place] Suicide Prevention Lifeline: The National Suicide Prevention Lifeline is a national network of local crisis centers that provides free and confidential emotional support to people in suicidal crisis or emotional distress 24 hours a day, 7 days a week. Don't Wait! Stop a Heart Attack Before it Starts What is a heart attack? A heart attack is damage or to a part of the heart from severely decreased or lack of blood flow to the heart. Over time, arteries can become narrow from the buildup of fat and cholesterol, which is called plaque. The plaque can rupture causing a blood clot to form. When the blood clot forms, the artery can become severely narrowed or completely blocked, causing a heart attack. Heart attack is the leading cause of in the [place]. 85% of muscle damage occurs within the first 2 hours. Delay in the recognition of heart attack symptoms increases the chances of . Know the early symptoms of a heart attack: Nausea Feeling of fullness in chest Jaw Pain Pain that travels down one or both arms Fatigue/being tired Anxiety Back Pain Chest pressure, squeezing, or discomfort Shortness of breath Sweating, or a cold sweat Feeling of impending doom There are unusual signs of a heart attack, too! Women, the elderly, and diabetics may present with atypical symptoms: Fainting/dizziness Weakness Confusion Risk Factors for a Heart Attack Some heart disease risk factors, such as age and family history, cannot be changed. Others, like smoking and lack of exercise, can be changed. Smoking High Cholesterol High Blood Pressure Family History Obesity Age Gender (Males are at higher risk) Lack of Exercise Diabetes Diet Stress Excessive Alcohol Intake If you or someone you know is experiencing the signs and symptoms of a heart attack, DON???T DELAY. Call immediately and seek help. If someone collapses, perform CPR! Do not attempt to drive if you are having symptoms of heart attack. Hands-Only CPR Why Hands-Only CPR? Hands-Only CPR has been shown to be as effective as conventional CPR for cardiac arrests that occur outside of a hospital. Survival depends on immediately receiving CPR from someone nearby. How do you perform Hands-Only CPR? There are two easy steps: Call 10-15- if you see a teen or adult collapse Push hard and fast in the center of the chest at a beat of 100 beats per minute. Save a life! 4 WAYS TO GET AHEAD OF SEPSIS SEPSIS is a MEDICAL EMERGENCY. Time matters! Infections put you and your family at risk for a life-threatening condition called sepsis. Sepsis is the body's extreme response to an infection. It is life-threatening, and without timely treatment, sepsis can rapidly lead to tissue damage, organ failure, and . Sepsis happens when an infection you already have-in your skin, lungs, urinary tract or somewhere else-triggers a chain reaction throughout your body. 1 PREVENT INFECTIONS Take good care of chronic conditions. Talk to your doctor about getting the recommended vaccines. 2 PRACTICE GOOD HYGIENE Wash your hands frequently. Keep cuts or open sores clean and covered until they are healed. 3 KNOW THE SYMPTOMS Confusion or disorientation Shortness of breath High heart rate Fever, shivering, or feeling very cold Extreme pain or discomfort Clammy or sweaty skin 4 ACT FAST Get medical care IMMEDIATELY if you suspect sepsis or if you have an infection that is not getting better or is getting worse. To learn more about sepsis and how to prevent infections, visit www.cdc.gov/sepsis. Patient Portal Reminder: Be sure to sign up for the [facility] patient portal, which gives you 06/09 access to your medical information ??? including these discharge instructions ??? using your computer, smartphone, or tablet. Just go to ITDatabase to get started. Questions? Call . Test Results Laboratory or Other Results This Visit (last charted value for your 06/21/2018 visit) Hematology 06/21/18 11:37:00 WBC: 7.9 K/uL -- Normal range between ( 3.9 and 10.0 ) RBC: 4.59 Million/uL -- Normal range between ( 3.93 and 5.22 ) Hct: 40.5 % -- Normal range between ( 34.1 and 44.9 ) Hgb: 13.1 Gram/dL -- Normal range between ( 11.2 and 15.7 ) Platelet Count: 212 K/uL -- Normal range between ( 163 and 369 ) MCH: 28.5 pg -- Normal range between ( 25.6 and 32.2 ) MCHC: 32.3 Gram/dL -- Normal range between ( 32.3 and 36.5 ) MCV: 88.2 fL -- Normal range between ( 79.0 and 94.8 ) Slide Review: No Eos %: 3.5 % -- Normal range between ( 1.0 and 7.0 ) Greer #: 0.52 K/uL -- Normal range between ( 0.24 and 0.82 ) Eos #: 0.28 K/uL -- Normal range between ( 0.04 and 0.54 ) Greer %: 6.6 % -- Normal range between ( 4.7 and 12.5 ) Baso %: 0.4 % -- Normal range between ( 0.0 and 1.0 ) Baso #: 0.03 K/uL -- Normal range between ( 0.01 and 0.08 ) RDW: 12.2 % -- Normal range between ( 11.6 and 14.4 ) Neut %: 58.2 % -- Normal range between ( 34.0 and 71.0 ) Neut #: 4.62 K/uL -- Normal range between ( 1.56 and 6.13 ) Lymph %: 30.9 % -- Normal range between ( 19.3 and 53.0 ) Lymph #: 2.45 K/uL -- Normal range between ( 1.18 and 3.74 ) MPV: 10.7 fL -- Normal range between ( 9.4 and 12.4 ) IG#: 0 x10(3)/uL IG%: 0 % -- Normal range between ( 0 and 1 ) General Chemistry 06/21/18 11:37:00 Creatinine Level: 0.68 mg/dL -- Normal range between ( 0.55 and 1.02 ) Sodium Level: 138 mmol/L -- Normal range between ( 136 and 146 ) Potassium Level: 4.3 mmol/L -- Normal range between ( 3.5 and 5.1 ) Chloride Level: 107 mmol/L -- Normal range between ( 102 and 112 ) Carbon Dioxide Level: 26 mmol/L -- Normal range between ( 21 and 32 ) Anion Gap: 9 -- Normal range between ( 9 and 20 ) Bun/Creatinine: 22.1 -- Normal range between ( 8.0 and 20.0 ) Calcium Level: 8.6 mg/dL -- Normal range between ( 8.5 and 10.1 ) eGFR : >60 mL/min/1.73m2 eGFR NonAfrican: >60 mL/min/1.73m2 Glucose Level: 87 mg/dL -- Normal range between ( 74 and 106 ) Blood Urea Nitrogen: 15 mg/dL -- Normal range between ( 7 and 22 ) Endocrinology 06/21/18 11:37:00 HCG Urine Qualitative: Negative Patient Name:PEG JONES LISA I have received this information and was given the opportunity to ask questions. Patient/Nutrition Aide Name: Patient/Nutrition Aide Signature: Relationship to Patient: Clinician/Hospital Nutrition Aide Signature: Date: documented in this encounter Plan of Treatment Not on file documented as of this encounter Visit Diagnoses Not on filedocumented in this encounter
--- OUTSIDE RECORDS SUMMARY | 2024-08-24 22:13 | XMS_ITS | Encounter Summary ---
Author Organization [employer] ([place], [place], [place], [place]) Address [address] [place] [address] Care Team Providers Care Load Out Worker Name Role Phone Unavailable Primary Care Provider Unavailabl e Encounter Details Date Type Department Care Team (Late st Contact Info) Description 06/21/2018 Transcribed Document [facility] [place] [facility] [place] [address] ProviderLaci MD [facility] [place] [address] Social History Tobacco Use Types Packs/Day Years Used Date Smoking Tobacco: Never Assessed Comments Unknown Sex and Gender Information Value Date Recorded Sex Assigned at Not on file Legal Sex Female 4:59 PM CDT Gender Identity Not on file Sexual Orientation Not on file documented as of this encounter Miscellaneous Notes * Cerner Conversion Note - Laci ProviderMD - 06/21/2018 11:29 AM CDT Pre Procedure Adult Entered On: 06/21/2018 11:33 EDT Performed On: 06/21/2018 11:29 EDT by OK LUONG RN Height and Weight, Clinical Dosing Height Source : Stated Height Entry Format : Dillon Height, Feet : 5 ft(Converted to: 152 cm, 60 Inch) Height, Inches : 5 Inch(Converted to: 0 ft 5 Inch, 12.70 cm) Clinical Height : 165.1 cm Weight Source : Standing scale Weight Entry Format : Dillon Clinical Dosing Weight : 76.36 kg Weight, Pounds : 168 lb Body Surface Area (BSA) : 1.84 m2 Body Mass Index : 28 kg/m2 (HI) [place] Body Weight : 57 kg OK LUONG RN - 06/21/2018 11:29 EDT Health Histories Smoking Status : Never (less than 100 in lifetime; none in last 30 days) Smokeless Tobacco Status : Never OK LUONG RN - 06/21/2018 11:29 EDT Social History (As Of: 06/21/2018 11:33:15 EDT) Infectious Disease History Infectious Disease History : None Isolation Needed : Standard Fever/Chills Last 48 Hours : No Travel To Regions with Travel Advisories : No Travel Outside [place] Within Last 30 Days : No Contact With Traveler to Advisory Region : No Exposure to Contagious Illness : No Tuberculosis Symptoms : None OK LUONG RN - 06/21/2018 11:29 EDT Anesthesia/Transfusion History Family History of Anesthesia Reaction : No prior transfusion(s) Transfusion History : No prior anesthesia Family History of Anesthesia Reaction : None OK LUONG RN - 06/21/2018 11:29 EDT Functional Assessment Living Situation : Home Patient Lives With : Adult Child/Children, Spouse Persons Assisting Patient at Home : Spouse Current Daily Living Assistance : None Sensory Deficits : None Mobility Assistance Prior to Admission : Independent LYNN Hx Falls Immediate/Within 3 Months : No Current Home Treatments : None Home Equipment : None Professional Skilled Services : None Special Services and Community Resources : None OK LUONG RN - 06/21/2018 12:26 EDT Psychosocial History Currently in Unsafe Situation : No Do You Have a Support System? : Yes Tried to Harm Yourself in the Past? : No Thoughts of Harming/Killing Yourself : No OK LUONG RN - 06/21/2018 11:29 EDT Advance Directive Patient has Advance Directive *Q : No, patient refuses Advance Directive information OK LUONG RN - 06/21/2018 11:29 EDT Spiritual/Cultural Needs Any Spiritual/Cultural Needs or Requests : No OK LUONG RN - 06/21/2018 11:29 EDT Teaching/Learning Assessment Barriers To Learning : None evident Individuals Taught : Patient, Spouse Readiness to Learn : Cooperative Baseline Knowledge of Topic : Good Readiness to Learn : Explanation, Printed materials Learning Style Preferences Patient : Printed materials, Verbal explanation Learning Style Preferences Family : Printed materials, Verbal explanation OK LUONG RN - 06/21/2018 12:26 EDT Education Topics, Periop Preadmission Perioperative Education Grid Arrival Time/Place : Verbalizes understanding Falls : Verbalizes understanding IV's : Verbalizes understanding NPO Status/Directions : Verbalizes understanding Pain Management : Verbalizes understanding Preprocedure Preparations : Verbalizes understanding Preprocedure Tests/Labs : Verbalizes understanding Responsible Adult : Verbalizes understanding Take/Hold Medications Pre-Procedure : Verbalizes understanding OK LUONG RN - 06/21/2018 12:26 EDT General Info Arrived From : Home Mode of Arrival on Unit : Ambulatory Patient Arrival Date/Time : 06/21/2018 10:15 EDT Legal Guardian : Son, Spouse Want Family/Rep/Phys Notified of Admit : No Emergency Contact #1 : SARAI Emergency Contact #1 Emergency Contact #1 Relationship : SPOUSE Emergency Contact #2 : . Emergency Contact #2 Phone Number : . Emergency Contact #2 Relationship : . Information Obtained From : Patient Primary Language : Croatian Preferred Communication Mode : Verbal Communication Barrier : None OK LUONG RN - 06/21/2018 11:29 EDT Sleep Apnea Risk Assmt Hx of Obstructive Sleep Apnea Diagnosis : No Snore Loudly : No Tired, Fatigued, or Sleepy During Day : No Observed Stopping Breathing During Sleep : No Have/Are Being Treated for Hypertension : No BMI Greater Than 35 kg/m2 : No Age over 50 Years Old : No Gender Male : No OK LUONG RN - 06/21/2018 11:29 EDT Mauro Scale Mauro Sensory Perception : No impairment Mauro Moisture : Rarely moist Mauro Activity : Walks frequently Mauro Mobility : No limitation Mauro Nutrition : Excellent Mauro Friction and Shear : No apparent problem Mauro Score : 23 OK LUONG RN - 06/21/2018 11:29 EDT Oxygen Therapy Oxygen Therapy Mode : Room air OK LUONG RN - 06/21/2018 11:29 EDT Pain Assessment Pain Assessment : Initial assessment Pain Scale Used : 0-10 Scale OK LUONG RN - 06/21/2018 11:29 EDT Fall Risk Scales ABCs Fall Injury Risk Identification : Surgery ABC Fall Injury Risk : Moderate to high injury risk LYNN Hx Falls Immediate/Within 3 Months : No Lynn Secondary Diagnosis : Yes LYNN Use of Ambulatory Aid : None LYNN IV Therapy or IV Access : Yes Lynn Gait/Transferring : Normal, bedrest, immobile Lynn Mental Status : Oriented to own ability Lynn Fall Risk Score : 35 LYNN Fall Scale Risk Level : 25-45 Medium Risk [place] Fall Interventions : Adequate lighting, Call device within reach, Personal items within reach, Upper side-rails up, Wheels locked OK LUONG RN - 06/21/2018 12:26 EDT Fall Risk Education Grid Call light use : Verbalizes understanding Nonskid Footwear Use : Verbalizes understanding Siderails use/risks : Verbalizes understanding OK LUONG RN - 06/21/2018 12:26 EDT Barriers to Learning : None evident Individuals Taught : Patient, Spouse Readiness to Learn : Cooperative Baseline Knowledge of Topic : Good Teaching Method : Printed materials Learning Style Preferences Family : Printed materials, Verbal explanation Learning Style Preferences Patient : Printed materials, Verbal explanation Teaching Evaluation : Verbalizes understanding OK LUONG RN - 06/21/2018 12:26 EDT Education Topics, Day of Surgery DayofSurgery Education Grid Anesthesia/Sedation : Verbalizes understanding Fall Risks : Verbalizes understanding Family Instructions : Verbalizes understanding IV's : Verbalizes understanding Medication Instructions : Verbalizes understanding Pain Management : Verbalizes understanding Responsible Adult : Verbalizes understanding OK LUONG RN - 06/21/2018 12:26 EDT Valuables and Belongings Valuables and Belongings : Clothing, Personal items Clothing : Common streetwear Clothing Disposition : With family Personal Items : Cell phone Personal Items Disposition : With family OK LUONG RN - 06/21/2018 11:29 EDT Pain Scale Intensity : 0 OK LUONG RN - 06/21/2018 11:29 EDT Image 4 - Images currently included in the form version of this document have not been included in the text rendition version of the form. Shaila Coma [place] Best Motor Response : Obey commands [place] Best Verbal Response : Oriented Shaila Eye Opening Response : Spontaneous [place] Coma Score : 15 OK LUONG RN - 06/21/2018 11:29 EDT documented in this encounter Plan of Treatment Not on file documented as of this encounter Visit Diagnoses Not on filedocumented in this encounter
--- OUTSIDE RECORDS SUMMARY | 2024-08-24 22:13 | XMS_ITS | Encounter Summary ---
Author Organization [employer] ([place], [place], [place], [place]) Address [address] [place] [address] Care Team Providers Care Ironworker Wire Fence Erector Name Role Phone Unavailable Primary Care Provider Unavailabl e Encounter Details Date Type Department Care Team (Late st Contact Info) Description 06/21/2018 Transcribed Document [facility] [place] [facility] [place] [address] ProviderLaci MD [facility] [place] [address] Social History Tobacco Use Types [...] Laci ProviderMD - 06/21/2018 1:19 PM CDT [facility] Main OR PostOp Summary Primary Physician: JONA BRENNAN III, MD Finalized Date/Time: 06/21/18 16:22:57 Pt. Name: PEG JONES LISA Simon/Sex: 1990 Female Med Rec #: [id number] Physician: JONA BRENNAN III, MD Financial #: [id number] Pt. Type: O Room/Bed: [facility] Admit/Disch: 06/21/18 10:00:00 - Institution: [facility] Main OR PostOp Case Times Entry 1 In PACU II 06/21/18 14:45:00 Ready for PACU II 06/21/18 15:35:00 Discharge Discharge from PACU 06/21/18 15:35:00 II Last Modified By: Rosa Freeman RN 06/21/18 16:22:56 Finalized By: Pete, Rosa, RN Document Signatures Signed By: Rosa Freeman RN 06/21/18 16:22 documented in this encounter Plan of Treatment Not on file documented as of this encounter Visit Diagnoses Not on filedocumented in this encounter
--- OUTSIDE RECORDS SUMMARY | 2024-08-24 22:13 | XMS_ITS | Encounter Summary ---
Author Organization [employer] ([place], [place], [place], [place]) Address [address] [place] [address] Care Team Providers Care Mine Manager Name Role Phone Unavailable Primary Care Provider Unavailabl e Encounter Details Date Type Department Care Team (Late st Contact Info) Description 06/21/2018 Transcribed Document [facility] [place] [facility] [place] [address] ProviderLaci MD [facility] [place] [address] Social History Tobacco Use Types [...] 06/21/2018 1:19 PM CDT [facility] Main OR PACU Summary Primary Physician: JONA BRENNAN III, MD Finalized Date/Time: 06/21/18 14:38:00 Pt. Name: PEG JONES LISA Simon/Sex: 1990 Female Med Rec #: [id number] Physician: JONA BRENNAN III, MD Financial #: [id number] Pt. Type: O Room/Bed: [facility] Admit/Disch: 06/21/18 10:00:00 - Institution: [facility] Main OR PACU Case Times Entry 1 In PACU I 06/21/18 14:05:00 Ready for PACU 06/21/18 14:45:00 Discharge Discharge from PACU 06/21/18 14:45:00 I Last Modified By: COSMO LARA, JOEY 06/21/18 14:37:22 [facility] Main OR PACU Case Times Audit 06/21/18 14:37:22 Evaluation Specialist: [email or web address] Modifier: [email or web address] <+> 1 Ready for PACU Discharge <+> 1 Discharge from PACU I Finalized By: COSMO LARA, RN Document Signatures Signed By: COSMO LARA RN 06/21/18 14:38 Electronically signed by Karlie [facility] Conversion [employer] Installer Cerner at 06/02/2022 11:02 AM CDT documented in this encounter Plan of Treatment Not on file documented as of this encounter Visit Diagnoses Not on filedocumented in this encounter
--- NOTE | 2024-08-24 22:25 | ECG_ITS ---
APPROVED REPORT Exam: Resting ECG HR:114 bpm ECG Measurements Heart Rate 114 AXES MN 141 P 51 QRSd 105 QRS 88 QT 298 T 5 QTc 366 Conclusion SINUS TACHYCARDIA NONSPECIFIC ST & T-WAVE ABNORMALITY ABNORMAL RHYTHM ECG UNCONFIRMED REPORT Sinus tachycardia with ventricular rate of [address] elevations or depressions. Electronically signed by : ADRIÁN KHOURY, 08/27/2024 11:06:16
[2024-08-24] MEDS: droPERidol 5MG/2ML VIAL 2.5 MG IV (22:28)
[2024-08-24] MEDS: KETOROLAC 30MG/ML VIAL 15 MG IV (22:29)
[2024-08-24] MEDS: RINGERS SOLUTION,LACTATED 500 ML 999 ML IV (22:29)
[2024-08-24 22:39] LABS: D-Dimer 0.51 ug/mL (0.0-0.5)
[2024-08-24 22:46] LABS: Troponin I < 0.01 ng/ml (0.00-0.034)
[2024-08-24 22:47] LABS: Hematocrit 45.3 % (37.0-47.0); Hemoglobin 14.8 g/dL (12.2-16.2); Immature Granulocytes % 0.1 %; Mean Corpuscular HGB Conc 32.7 g/dL (31.8-35.4); Mean Corpuscular Hemoglobin 28.5 pg (27.0-31.2); Mean Corpuscular Volume 87.1 fl (81-99); Nucleated Red Blood Cells % 0 %; Platelet Count 411 K/mm3 (142-424); Red Blood Count 5.20 M/mm3 (4.20-5.40); Red Cell Distribution Width-SD 38.8 fL; White Blood Count 10.4 K/mm3 (4.8-10.8)
[2024-08-24 23:04] LABS: Thyroid Stimulating Hormone 3.76 uIU/mL (0.465-4.68)
[2024-08-24 23:12] LABS: HCG Qualitative, Serum Negative (Negative)
[2024-08-24 23:25] VITALS: BP 138/74; PULSE 89; RESP 20; TEMP 36.8; O2SAT 100
--- NOTE | 2024-08-24 23:26 | PC.NURSE ---
IV discontinued. Catheter tip intact. Bleeding controlled.
== END 2024-08-24 23:26 | disposition home or self-care (01) ==
PROVIDERS: Emergency Provider Student in an Organized Health Care Education/Training Program; PCP Physician Assistant
DX: M54.2 Cervicalgia (principal); F41.1 Generalized anxiety disorder
CPT/HCPCS: 71045; 84443; 84484; 84703; 85025; 85378; 93005; 96374; 96375; 99284; J1200; J1790; J1885; J7120